=== PATIENT | female | born 1935 | race Caucasian/White ===

== ENCOUNTER 2016-11-29 07:57 | Emergency (ER) | payer MEDICARE, OTHER ==
[~2016-11-29] VITALS: Ht 172.7 cm; Wt 82.0 kg
[~2016-11-29 07:57] MED LIST: ASPI325T PO; ATOR40TA29 PO; DABI75CA3 PO; DOCU-175 PO; GABA-336 PO; SOTA80TA20 PO; [UNRECOGNIZED DRUG - CODE] BOTH EYES
[2016-11-29 07:59] VITALS: Ht 172.7 cm; Wt 82.0 kg
--- OUTSIDE RECORDS SUMMARY | 2016-11-29 08:02 | XMS REPORT | Continuity of Care Document ---
Author Author [facility] Organization [facility] Address Unknown Phone Unavailable Support Name Relationship Address Phone LOKESH ZHANG MD Caregiver [facility] [address] [place] [address] TETE KING [address] [place] [address] [phone] SYLVIA MARTIN DO Caregiver [facility] [address] [place] [address] [facility] [address] [place] [phone] MAC ARVIZU Next Of Kin [address] [place], [place] [id number] Insurance Providers Payer Name Policy Number Subscriber Name Relationship Medicare [id number] Raquel Maguire 18 Self [place] [id number] Raquel Maguire 18 Self Advance Directives Directive Response Recorded Date/Time Advanced Directives Type None 01/22/14 11:13pm Ordered Resuscitation Status Full Code 01/22/14 10:02pm Resuscitation Documents on File No 01/22/14 11:13pm Chief Complaint and Reason for Visit Chief Complaint NEW ONSET OF AFIB Reason for Visit Paroxysmal atrial fibrillation Problems Medical Problems Problem Onset Date Status Urinary tract infection Unknown Active Atrial fibrillation with rapid ventricular response Unknown Active Volume depletion Unknown Active Bradycardia 09/23/2014 Active Paroxysmal atrial fibrillation 09/23/2014 Active Medications Medication Dose Route Sig Days/Qty Instructions Order Date Discontinued Date Status Ibuprofen 200 Mg PO NEEDED 10/26/09 05/06/12 Discontinued Calcium 1,000 Mg PO DAILY 07/18/08 10/25/09 Discontinued Multivitamins 1 Tab PO DAILY 10/26/09 05/06/12 Discontinued Risedronate 35 Mg PO WEEKLY 10/26/09 05/06/12 Discontinued Atorvastatin Calcium 10 Mg PO DAILY 07/18/08 10/25/09 Discontinued Simvastatin 40 Mg PO DAILY 10/26/09 09/20/13 Discontinued [Amiodarone] 05/29/10 05/06/12 Discontinued Acetaminophen 2 Tab PO NEEDED 05/06/12 09/20/13 Discontinued Flecainide Acetate 150 Mg PO TWICE A DAY 09/20/13 09/23/14 Discontinued Atorvastatin Calcium 40 Mg PO BEDTIME 09/20/13 Active Gabapentin 100 Mg PO TWICE A DAY 100 Qty 05/10/14 Active Acetaminophen 1-2 Tab PO NEEDED 05/10/14 Active Aspirin 325 Mg PO DAILY 05/10/14 09/23/14 Discontinued Docusate Sodium 1 Cap PO NEEDED 09/15/14 Active Dabigatran Etexilate Mesylate 1 Cap PO TWICE A DAY TAKE WITH FULL GLASS OF WATER. 09/22/14 Active Amiodarone HCl 200 Mg PO DAILY 30 Qty 10/07/14 Active Social History Social History Problem Response Recorded Date/Time Hx Substance Use No 09/22/2014 1:13pm Hx Alcohol Use Y RARELY 09/22/2014 1:13pm Has the pt used tobacco in the last 12 months No 10/06/2014 2:24pm Query Response Start Date Stop Date Smoking Status Never smoker Hospital Discharge Instructions Instructions: Care Instructions: Reason for Hospitalization: Afib I was in the hospital because (patient own words): STATES,"I HAVE ATRIAL FIB." Discharge Diet: Heart Healthy Discharge Activity: No restrictions. Follow Up Appointments: Keep scheduled appointments for Echo and OV next week. Condition at time of discharge: Good n/a Durable Medical Equipment: n/a Notify Physician If: fever > 101, worsening pain General Information: n/a Condition at time of discharge: Good Plan of Care Discharge Date 10/07/14 3:45pm Disposition 01 DISCHARGED HOME, SELF-CARE Instructions/Education Provided Atrial Fibrillation Prescriptions See Medications Section Functional Status Query Response Date Recorded Physical Hygiene Self October 07, 2014 2:56pm Disabilities None October 07, 2014 2:56pm Devices Used None October 07, 2014 2:56pm Dressing Self October 07, 2014 2:56pm Ambulation Self October 07, 2014 2:56pm Diet Self October 07, 2014 2:56pm Mental Status Alert Oriented October 07, 2014 2:56pm Disabilities None October 07, 2014 2:56pm Devices Used None October 07, 2014 2:56pm Physical Hygiene Self October 07, 2014 2:56pm Dressing Self October 07, 2014 2:56pm Ambulation Self October 07, 2014 2:56pm Diet Self October 07, 2014 2:56pm Allergies, Adverse Reactions, Alerts Allergen Type Severity Reaction Status Last Updated No Known Drug Allergies Allergy Unknown Active 10/06/14 Immunizations Name Given Type Hx Influenza Vaccination Y FALL 2013 Historical Hx Pneumococcal Vaccination Y FALL 2012 Historical Hx Influenza Vaccination Y FALL 2013 Historical Vital Signs Acute Vital Signs Vital Response Date/Time Temperature (Fahrenheit) 96.1 deg F (96.8 - 99.1) Temperature (Calculated Celsius) 35.94534 degrees C (36.0 - 37.3) Pulse Rate (adult) 50 bpm (60 - 100) Respiratory Rate 24 breaths/min (10 - 20) O2 Sat by Pulse Oximetry 98 % (90 - 100) Oxygen Delivery Method Room Air Blood Pressure 113/67 mm Hg Blood Pressure Source Automatic Cuff Height 5 ft 9 in Weight 174 lb Body Mass Index 25.0 kg/m^2 Results Test Source Date Result Interp. Ref. Range Comments Activated Partial Thromboplast Time May 06, 2012 1:53am 46.1 SEC H 24-36 Alanine Aminotransferase (ALT/SGPT) October 06, 2014 4:20pm 30 U/L N 9-52 Albumin October 06, 2014 4:20pm 3.5 G/DL N 3.5-5.0 Albumin/Globulin Ratio October 06, 2014 4:20pm 1.2 RATIO N 1.1-2.2 Alkaline Phosphatase October 06, 2014 4:20pm 81 U/L N 38-126 Anion Gap October 07, 2014 5:19am 10 MEQ/L N 5-15 Aspartate Amino Transf (AST/SGOT) October 06, 2014 4:20pm 22 U/L N 14-36 BUN/Creatinine Ratio October 07, 2014 5:19am 18 RATIO N 6-26 Basophils # (Auto) October 06, 2014 4:20pm 0.0 T/MM3 N 0-0.2 Basophils (%) (Auto) October 06, 2014 4:20pm 0.7 % N 0-2 Blood Urea Nitrogen October 07, 2014 5:19am 14.0 MG/DL N 7-17 C-Reactive Protein December 16, 2012 4:30pm < 5.0 MG/L 0-9 Calcium Level October 07, 2014 5:19am 9.4 MG/DL N 8.4-10.2 Calculated Osmolality October 07, 2014 5:19am 278 MOSM/KG N 261-280 Carbon Dioxide Level October 07, 2014 5:19am 26 MEQ/L N 22-30 Chemistry Specimen Hemolysis October 07, 2014 5:19am < 15 0-25 0-25: No Hemolysis.26-70: Slight Hemolysis - can falsely elevate K and Urine Protein. 71-285: Moderate Hemolysis - can falsely elevate K, Troponin I, CA 19-9, PTH, CSF GLucose, and Urine Protein, and can falsely decrease Phenytoin. 286-999: Gross Hemolysis - can falsely elevate K, Troponin I, CA 19-9, PTH, CSF Glucose, and Urine Protine, and can falsely decrease Phenytoin. Recommend specimen recollection. Chloride Level October 07, 2014 5:19am 108 MEQ/L H 98-107 Cholesterol Level June 21, 2014 7:43am 175 MG/DL N 132-199 Cholesterol/HDL Ratio June 21, 2014 7:43am 2.9 RATIO N 0-4.0 Conjugated Bilirubin August 17, 2013 7:18am 0.00 MG/DL N 0.00-0.30 Creatine Kinase MB May 06, 2012 8:40pm 0.7 NG/ML N 0-3.4 Creatinine October 07, 2014 5:19am 0.8 MG/DL N 0.7-1.2 D-Dimer May 06, 2012 1:53am 166 NG/ML N 0-400 --- 05/06/12 0254 -- -DD previously reported as: < 150 NG/ML <400 NG/ML=PRESUMPTIVE NEGATIVE FOR PE OR DVT >400 NG/ML=ADDITIONAL EVALUATION FOR PE OR DVT RECOMMENDED Eosinophils # (Auto) October 06, 2014 4:20pm 0.1 T/MM3 N 0-0.5 Eosinophils (%) (Auto) October 06, 2014 4:20pm 1.9 % N 0-4 Erythrocyte Sedimentation Rate December 16, 2012 4:30pm 15 MM/HR N 0-20 Free Thyroxine October 06, 2014 4:20pm 1.04 NG/DL N 0.78-2.19 Globulin October 06, 2014 4:20pm 2.9 G/DL N 2.4-3.6 Glomerular Filtration Rate Calc October 07, 2014 5:19am 69 - Glucose Level October 07, 2014 5:19am 101 MG/DL N 65-110 HDL Cholesterol Direct June 21, 2014 7:43am 61 MG/DL H 40-60 Hematocrit October 06, 2014 4:20pm 37.5 % N 36-46 Hemoglobin October 06, 2014 4:20pm 12.4 GM/DL N 12-16 Icterus Index October 07, 2014 5:19am 2 N 0-7 Immature Granulocyte # (Auto) October 06, 2014 4:20pm 0.01 T/MM3 N 0.00- 0.03 Immature Granulocyte % (Auto) October 06, 2014 4:20pm 0.2 % N 0.0-0.5 LDL Cholesterol, Calculated June 21, 2014 7:43am 100.0 N 66-159 Lab Scanned Report June 21, 2014 12:35pm LAB TEST FORM REQUEST [id number] - Lymphocytes # (Auto) October 06, 2014 4:20pm 2.2 T/MM3 N 1-4.8 Lymphocytes (%) (Auto) October 06, 2014 4:20pm 38.2 % N 23-45 Magnesium Level October 07, 2014 5:19am 2.2 MG/DL N 1.6-2.3 Mean Corpuscular Hemoglobin October 06, 2014 4:20pm 29.3 UUG N 26-34 Mean Corpuscular Hemoglobin Concent October 06, 2014 4:20pm 33.1 GM/DL N 31-37 Mean Corpuscular Volume October 06, 2014 4:20pm 88.7 UM3 N 80-100 Mean Platelet Volume October 06, 2014 4:20pm 10.4 UM3 N 9.4-12.4 Monocytes # (Auto) October 06, 2014 4:20pm 0.6 T/MM3 N 0-0.8 Monocytes (%) (Auto) October 06, 2014 4:20pm 11.0 % H 0-9.0 LW-Say-K-Type Natriuretic Peptide May 06, 2012 1:53am 1520 PG/ML H 0 -175 Rule in cut points: <50 years old=450; 50-75 years old=900; >75 years old=1800; When utilizing ProBNP rule-in cut points, adjustment for impaired renal function is typically not required. Neutrophils # (Auto) October 06, 2014 4:20pm 2.8 T/MM3 N 1.8-7.7 Neutrophils (%) (Auto) October 06, 2014 4:20pm 48.0 % N 33-66 Platelet Count October 06, 2014 4:20pm 240 T/MM3 N 130-400 Potassium Level October 07, 2014 5:19am 4.1 MEQ/L N 3.6-5 Prothromb Time International Ratio September 20, 2013 8:55am 1.07 N 0.86- 1.10 THERAPUTIC RANGE=2.00-3.00 FOR ANTI-THROMBOSIS THERAPUTIC RANGE=2.50- 3.50 FOR IMPLANTED VALVE RDW Standard Deviation October 06, 2014 4:20pm 42.8 FL N 36.9-50.2 Red Blood Count October 06, 2014 4:20pm 4.23 M/MM3 N 4.00-5.20 Sodium Level October 07, 2014 5:19am 144 MEQ/L N 134-144 Thyroid Stimulating Hormone (TSH) October 06, 2014 4:20pm 1.97 MIU/L N 0.47-4.68 Total Bilirubin October 06, 2014 4:20pm 0.40 MG/DL N 0.20-1.30 Total Creatine Kinase May 06, 2012 8:40pm 61 U/L N 30-135 Total Protein October 06, 2014 4:20pm 6.4 G/DL N 6.3-8.2 Triglycerides Level June 21, 2014 7:43am 70 MG/DL N 35-135 Troponin I September 14, 2014 11:24pm 0.014 ng/ml N 0-0.12 Turbidity October 07, 2014 5:19am < 20 0-20 Unconjugated Bilirubin August 17, 2013 7:18am 0.40 MG/DL N 0.00-1.10 Urine Bacteria September 14, 2014 11:16pm None seen - Has specimen been collected/obtained? Y Urine Bilirubin September 14, 2014 11:16pm Negative - Has specimen been collected/obtained? Y Urine Blood September 14, 2014 11:16pm Trace-intact H - Has specimen been collected/obtained? Y Urine Collection Type September 14, 2014 11:16pm Cleancatch-midstream - Has specimen been collected/obtained? Y Urine Color September 14, 2014 11:16pm Yellow - Has specimen been collected/obtained? Y Urine Culture Indicated September 14, 2014 11:16pm Cult reflexed &setup - Has specimen been collected/obtained? Y Urine Glucose (UA) September 14, 2014 11:16pm Negative - Has specimen been collected/obtained? Y Urine Ketones September 14, 2014 11:16pm Negative - Has specimen been collected/obtained? Y Urine Leukocyte Esterase September 14, 2014 11:16pm Trace H - Has specimen been collected/obtained? Y Urine Nitrite September 14, 2014 11:16pm Positive H - Has specimen been collected/obtained? Y Urine Protein September 14, 2014 11:16pm Negative - Has specimen been collected/obtained? Y Urine RBC September 14, 2014 11:16pm None seen /HPF - Has specimen been collected/obtained? Y Urine Specific [place] September 14, 2014 11:16pm <=1.005 L - Has specimen been collected/obtained? Y Urine Squamous Epithelial Cells September 14, 2014 11:16pm None seen - Has specimen been collected/obtained? Y Urine Turbidity September 14, 2014 11:16pm Clear - Has specimen been collected/obtained? Y Urine Urobilinogen September 14, 2014 11:16pm 0.2 EU/DL - Has specimen been collected/obtained? Y Urine WBC September 14, 2014 11:16pm 1-3 /HPF - Has specimen been collected/obtained? Y Urine pH September 14, 2014 11:16pm 6.0 - Has specimen been collected/ obtained? Y VLDL Cholesterol June 21, 2014 7:43am 14.0 MG/DL N 0-28 White Blood Count October 06, 2014 4:20pm 5.8 T/MM3 N 4.5-11.0 Urine Culture Urine, Clean Catch-Midstream September 15, 2014 12:27am Pseudomonas Aeruginosa Procedures Procedure Status Date Provider(s) COMPREHEN METABOLIC PANEL completed 09/14/14 URINALYSIS AUTO W/SCOPE completed 09/14/14 ASSAY OF MAGNESIUM completed 09/14/14 ASSAY OF TROPONIN QUANT completed 09/14/14 COMPLETE CBC W/AUTO DIFF WBC completed 09/14/14 URINE CULTURE/COLONY COUNT completed 09/14/14 ELECTROCARDIOGRAM TRACING completed 09/14/14 HYDRATE IV INFUSION ADD-ON completed 09/14/14 THER/PROPH/DIAG IV INF INIT completed 09/14/14 EMERGENCY DEPT VISIT completed 09/14/14 [id number] ITEM OR SERVICE completed 09/14/14 [id number]"INJECTION, CEFTRIAXONE SODIUM, PER 250 MG" completed 09/14/14 [id number]"INFUSION, NORMAL SALINE SOLUTION , 1000 CC" completed 09/14/14 [id number]"INFUSION, NORMAL SALINE SOLUTION , 250 CC" completed 09/14/14 ELECTROCARDIOGRAM TRACING completed 09/23/14 Encounters Encounter Location Date/Time Discharged Inpatient [facility] 10/06/14 1:41pm Departed Clinic [facility] 09/23/14 11:57am Departed Emergency Room [facility] 09/14/14 10:57pm Recent Diagnosis Paroxysmal atrial fibrillation
--- OUTSIDE RECORDS SUMMARY | 2016-11-29 08:03 | XMS REPORT | Continuity of Care Document ---
Author Author [facility] Organization [facility] Address Unknown Phone Unavailable Support Name Relationship Address Phone LOKESH ZHANG MD Caregiver [address] [place] [address] [address] [place] [address] Unavailable LOKESH ZHANG MD Caregiver [address] [place] [address] [address] [place] [address] Unavailable SYLVIA MARTIN DO Caregiver [address] [place] [address] Unavailable GODFREY SUTTON MD Caregiver [address] [place] [address] [place] [address] Unavailable MAC ARVIZU Next Of Kin [address], [place] [id number] Insurance Providers Guarantor Raquel Maguire Address [address] [place] [address] Email [email or web address] Payer Medicare Policy Number [id number] Subscriber's Name Raquel Maguire Key Relationship 18 Self Effective Date 00 Payer [place] Policy Number [id number] Subscriber's Name Raquel Maguire Relationship 18 Self Group Number PLANE Effective Date 00 Advance Directives Directive Response Recorded Date/Time Advanced Directives Type None 01/22/14 11:13pm Dr Ocasio Resuscitation Status Full Code 01/22/14 10:02pm Resuscitation Documents on File No 01/22/14 11:13pm DPOA for Healthcare Only Y TAMARA TING 02/09/16 12:59pm Living Will Yes 02/09/16 12:59pm Problems Active Problems Medical Problem Onset Date Status Atrial fibrillation with rapid ventricular response Unknown Acute Bradycardia 09/23/2014 Acute Low serum thyroid stimulating hormone (TSH) Unknown Acute Metatarsal bone fracture Unknown Acute Paroxysmal atrial fibrillation 09/23/2014 Acute Urinary tract infection Unknown Acute Volume depletion Unknown Acute Medications Current Home Medications Medication Dose Units Route Directions Days Qty Instructions Start Date Amiodarone Hcl (Pacerone) 200 Mg Tablet 200 Mg Oral Daily 30 Days 30 Tablet 02/10/16 Amiodarone Hcl (Pacerone) 200 Mg Tablet 400 Mg Oral Twice A Day 7 Days 28 Tablet 02/10/16 Aspirin 325 Mg Tablet 650 Mg Oral Three Times A Day 02/09/16 Atorvastatin Calcium 40 Mg Tablet 40 Mg Oral Bedtime 09/20/13 Carboxymethylcellulose Sodium (Restore Tears) 30 Ml Drops 1 Drop Both Eyes Daily 02/09/16 Cephalexin 500 Mg Capsule 500 Mg Oral Every 12 Hours 10 Days 20 Capsule 02/10/16 Dabigatran Etexilate Mesylate (Pradaxa) 75 Mg Capsule 150 Mg Oral Twice A Day 30 Days 120 Capsule 02/10/16 Docusate Sodium 100 Mg Capsule 100 Mg Oral Daily 09/15/14 Gabapentin 100 Mg Capsule 100 Mg Oral Three Times A Day 05/10/14 Metoprolol Succinate (Toprol Xl) 50 Mg Tab.er.24h 50 Mg Oral Twice A Day 30 Days 60 Tablet 02/10/16 Past Home Medications Medication Directions Ordered Status Acetaminophen (Tylenol Arthritis) 650 Mg Tablet, 2 Tab Oral As Needed Discontinued Amiodarone , 05/29/10 Discontinued Aspirin 325 Mg Tablet, 325 Mg Oral Daily 05/10/14 Discontinued Atorvastatin Calcium (Lipitor) 10 Mg Tablet, 10 Mg Oral Daily 07/18/08 Discontinued Calcium 500 Mg Tablet, 1000 Mg Oral Daily 07/18/08 Discontinued Dabigatran Etexilate Mesylate (Pradaxa) 75 Mg Capsule, 150 Mg Oral Twice A Day 09/22/14 Discontinued Flecainide Acetate 150 Mg Tablet, 150 Mg Oral Twice A Day 09/20/13 Discontinued Ibuprofen 200 Mg Capsule, 200 Mg Oral As Needed 10/26/09 Discontinued Multivitamins (Multi-Day Vitamin) 1 Tab Tablet, 1 Tab Oral Daily 10/26/09 Discontinued Risedronate (Actonel) 35 Mg Tablet, 35 Mg Oral Weekly 10/26/09 Discontinued Simvastatin 40 Mg Tablet, 40 Mg Oral Daily 10/26/09 Discontinued Social History Social History Problem Response Recorded Date/Time Onset Date Status Hx Substance Use No 02/09/2016 10:52am Not Applicable Not Applicable Hx Alcohol Use Y RARELY 02/09/2016 10:52am Not Applicable Not Applicable Has the pt used tobacco in the last 12 months No 02/09/2016 1:02pm Not Applicable Not Applicable Tobacco Usage none 02/09/2016 5:05pm Not Applicable Not Applicable Query Response Start Date Stop Date Smoking Status Never smoker Hospital Discharge Instructions Instructions: Care Instructions: Reason for Hospitalization: atrial fibrillation with rapid ventricular response I was in the hospital because (patient own words): DIZZY AND MY PULSE WAS A-FIB AND WEAK Discharge Diet: Heart Healthy, Low Na, Low caffeine Discharge Activity: as tolerated Follow Up Appointments: Dr. Guo 1-2 weeks, call to make that appointment Dr. Zhang/Debbie Estrada [employer] 1 week w/an ECG Dr. Martin in one week from discharge regarding UTI and thyroid function. Pending Lab / Results: No Pending Lab Patient Instructions: Amiodarone 400mg by mouth twice daiy for 7 days; then Amiodarone 200mg once daily there after. Metoprolol 50mg twice daily Pradaxa 150mg twice daily Aspirin as prior to admission, at least 81mg daily until one year post coronary stenting Keflex 500mg by mouth every 12 hours for 10 days (UTI) Monitor BP and pulse at home daily, call for sbp <100 or dizziness with position changes. Condition at time of discharge: Good Plan of Care Discharge Date 02/10/16 5:35pm Disposition 01 DISCHARGED HOME, SELF-CARE Prescriptions See Medication Section Additional Instructions/Education Follow up with Dr Martin in one week for (1) Urinary Tract infection (2) Regarding your thyroid activity (low TSH level/overactive thyroid) Care Plan and Goals See Discharge Instructions Section Functional Status Query Response Date Recorded Mobility Status Ambulatory w/assist February 09, 2016 1:18pm Assistive Devices None February 09, 2016 1:18pm Activity Limitations Weakness Dizziness February 09, 2016 1:18pm Feeding Ability Independent February 09, 2016 1:18pm Toileting Ability Independent February 09, 2016 1:18pm Grooming Ability Independent February 09, 2016 1:18pm Dressing Ability Independent February 09, 2016 1:18pm Driving Ability Independent February 09, 2016 1:18pm Housework Ability Independent February 09, 2016 1:18pm Meal Preparation Ability Independent February 09, 2016 1:18pm Stair Climbing Ability Independent February 09, 2016 1:18pm Ability to complete ADL's impeded by No change February 09, 2016 1:18pm Cognitive/Perceptual Impairments Impaired vision February 09, 2016 1:18pm Visual Assistive Devices Glasses February 09, 2016 1:18pm Preferred Method of Learning Reading Listening February 09, 2016 1:18pm Allergies, Adverse Reactions, Alerts Allergen Type Severity Reaction Status Last Updated No Known Drug Allergies Allergy Unknown Active 02/09/16 Immunizations Query Response on File Recorded Date/Time Hx Influenza Vaccination Y fall 201402/09/16 1:02pm Hx Pneumococcal Vaccination Y fall 201202/09/16 1:02pm Hx Influenza Vaccination Y fall 201402/09/16 1:02pm Influenza Vaccine Hx March 2015 02/10/16 1:41pm Vital Signs Acute Vital Signs Vital Response Date/Time Temperature (Fahrenheit) 97.7 deg F (96.8 - 99.1) 02/10/2016 12:07pm Temperature (Calculated Celsius) 36.27531 degrees C (36.0 - 37.3) 02/10/2016 12:07pm Pulse Rate (adult) 62 bpm (60 - 100) 02/10/2016 1:01pm Respiratory Rate 10 breaths/min (10 - 20) 02/10/2016 1:01pm O2 Sat by Pulse Oximetry 100 % (90 - 100) 02/10/2016 1:01pm Oxygen Delivery Method Room Air 02/10/2016 1:01pm Blood Pressure 115/58 mm Hg 02/10/2016 1:01pm Blood Pressure Source Automatic Cuff 02/10/2016 1:01pm Height (Feet) 5 feet 02/09/2016 5:05pm Height (Inches) 8.00 inches 02/09/2016 5:05pm Weight (Kilograms) 87.500 kg 02/10/2016 11:11am Body Mass Index (BMI) 32.7 02/09/2016 12:57pm Results Laboratory Results Test Name Result Units Flags Reference Collection Date/Time Result Date/ Time Comments White Blood Count 6.9 T/MM3 4.5-11.0 02/09/2016 11:02am 02/09/2016 11: 25am Red Blood Count 4.35 M/MM3 4.00-5.20 02/09/2016 11:02am 02/09/2016 11: 25am Hemoglobin 12.4 GM/DL 12-02/09/2016 11:02am 02/09/2016 11:25am Hematocrit 39.0 % 36-46 02/09/2016 11:02am 02/09/2016 11:25am Mean Corpuscular Volume 89.7 UM3 80-100 02/09/2016 11:0202/09/2016 11:25am Mean Corpuscular Hemoglobin 28.5 UUG 26-34 02/09/2016 11:2015 11:25am Mean Corpuscular Hemoglobin Concent 31.8 GM/DL 31-37 02/09/2016 11:02/09/2016 11:25am RDW Standard Deviation 42.9 FL 36.9-50.2 02/09/2016 11:02/09/2016 11:25am Platelet Count 268 T/MM3 130-400 02/09/2016 11:0202/09/2016 11:25am Mean Platelet Volume 10.4 UM3 9.4-12.4 02/09/2016 11:0202/09/2016 11 :25am Neutrophils (%) (Auto) 64.5 % 33-66 02/09/2016 11:02/09/2016 11: 25am Lymphocytes (%) (Auto) 24.8 % 23-45 02/09/2016 11:0202/09/2016 11: 25am Monocytes (%) (Auto) 9.1 % H 0-9.0 02/09/2016 11:02/09/2016 11: 25am Eosinophils (%) (Auto) 1.2 % 0-4 02/09/2016 11:02/09/2016 11:25am Basophils (%) (Auto) 0.4 % 0-2 02/09/2016 11:0202/09/2016 11:25am Immature Granulocyte % (Auto) 0.0 % 0.0-0.5 02/09/2016 11:2015 11:25am Absolute Neutrophils (auto) 4.5 T/MM3 1.8-7.7 02/09/2016 11:2015 11:25am Absolute Lymphocytes (auto) 1.7 T/MM3 1-4.8 02/09/2016 11:2015 11:25am Absolute Monocytes (auto) 0.6 T/MM3 0-0.8 02/09/2016 11:022015 11:25am Absolute Eosinophils (auto) 0.1 T/MM3 0-0.5 02/09/2016 11:022015 11:25am Absolute Basophils (auto) 0.0 T/MM3 0-0.2 02/09/2016 11:022015 11:25am Absolute Immature Granulocyte (auto 0.00 T/MM3 0.00-0.03 02/09/2016 11: 0202/09/2016 11:25am Icterus Index < 2 0-7 02/09/2016 11:0202/09/2016 11:31am Chemistry Specimen Hemolysis < 15 0-25 02/10/2016 6:13am 02/10/2016 7 :21am 0-25: Specimen Exhibited No Hemolysis. Turbidity < 20 0-20 02/09/2016 11:0202/09/2016 11:31am Sodium Level 144 MEQ/L 134-144 02/09/2016 11:02am 02/09/2016 11:31am Potassium Level 4.4 MEQ/L 3.6-5 02/09/2016 11:0202/09/2016 11:31am Chloride Level 105 MEQ/L 98-107 02/09/2016 11:0202/09/2016 11:31am Carbon Dioxide Level 28 MEQ/L 22-30 02/09/2016 11:02am 02/09/2016 11: 31am Anion Gap 11 MEQ/L 5-15 02/09/2016 11:0202/09/2016 11:31am Blood Urea Nitrogen 16.0 MG/DL 7-17 02/09/2016 11:02am 02/09/2016 11: 31am Creatinine 0.6 MG/DL L 0.7-1.2 02/09/2016 11:0202/09/2016 11:31am BUN/Creatinine Ratio 27 RATIO H 6-26 02/09/2016 11:0202/09/2016 11: 31am Glomerular Filtration Rate Calc 96 02/09/2016 11:0202/09/2016 11 :31am Glucose Level 141 MG/DL H 65-110 02/09/2016 11:0202/09/2016 11:31am Calculated Osmolality 280 MOSM/KG 261-280 02/09/2016 11:022015 11:31am Calcium Level 9.6 MG/DL 8.4-10.2 02/09/2016 11:02am 02/09/2016 11:31am Troponin I < 0.012 ng/ml 0-0.12 02/10/2016 6:13am 02/10/2016 7:21am Troponin values with a difference of 55% increase from orginal troponin value represent a true biological DELTA value. (%increase Calc=Orginal Troponin value, divided by subsequent Troponin value, multiplied by 100) AX-Ttr-Y-Type Natriuretic Peptide 1130 PG/ML H 0-175 02/09/2016 11:02am 02/09/2016 11:42am Rule in cut points: <50 years old=450; 50-75 years old=900; >75 years old=1800; When utilizing ProBNP rule-in cut points, adjustment for impaired renal function is typically not required. Magnesium Level 2.3 MG/DL 1.6-2.3 02/09/2016 11:02am 02/09/2016 11: 31am Thyroid Stimulating Hormone (TSH) < 0.02 MIU/L L 0.47-4.68 02/09/2016 12: 00pm 02/09/2016 3:04pm Urine Collection Type VOIDED-NOT CC-MIDSTR 02/09/2016 1:01pm 2015 1:19pm Urine Color YELLOW YELLOW 02/09/2016 1:01pm 02/09/2016 1:19pm Urine Turbidity CLEAR CLEAR 02/09/2016 1:01pm 02/09/2016 1:19pm Urine Specific [place] <=1.005 L 1.015-1.025 02/09/2016 1:01pm 2015 1:19pm Urine pH 6.0 5.0-8.0 02/09/2016 1:01pm 02/09/2016 1:19pm Urine Leukocyte Esterase TRACE A NEGATIVE 02/09/2016 1:01pm 2015 1:19pm Urine Nitrite POSITIVE A NEGATIVE 02/09/2016 1:01pm 02/09/2016 1:19pm Urine Protein NEGATIVE NEGATIVE 02/09/2016 1:01pm 02/09/2016 1:19pm Urine Glucose (UA) NEGATIVE NEGATIVE 02/09/2016 1:01pm 02/09/2016 1: 19pm Urine Ketones NEGATIVE NEGATIVE 02/09/2016 1:01pm 02/09/2016 1:19pm Urine Urobilinogen 0.2 EU/DL NORMAL 02/09/2016 1:01pm 02/09/2016 1: 19pm Urine Bilirubin NEGATIVE NEGATIVE 02/09/2016 1:01pm 02/09/2016 1: 19pm Urine Blood NEGATIVE NEGATIVE 02/09/2016 1:01pm 02/09/2016 1:19pm Urine WBC 5-10 /HPF H 0-5 02/09/2016 1:01pm 02/09/2016 1:40pm Urine RBC NONE SEEN /HPF 0-3 02/09/2016 1:01pm 02/09/2016 1:40pm Urine Squamous Epithelial Cells 0-5 02/09/2016 1:01pm 02/09/2016 1: 40pm Urine Bacteria 1+ H NEGATIVE 02/09/2016 1:01pm 02/09/2016 1:40pm Urine Culture Indicated CULT REFLEXED &SETUP 02/09/2016 1:01pm 1:40pm Microbiology Results Procedure Source Organism/Result Collection Date/Time Result Date/Time Result Status Urine Culture Urine, Voided-Not Cc-Midstream GRAM NEGATIVE FREDDY 02/09/2016 1 :40pm 02/10/2016 12:18pm Preliminary Name: RAQUEL MAGUIRE Unit #: [id number] : 1935 Sex: F Admit Date: Loc / Svc: ED Discharge Date: DIAGNOSTIC IMAGING REPORT Report #: [id number] [place], [place] Indication: ITS.REASON: atrial fibrillation PROCEDURE: CHEST 1 VIEW: Encounter: Initial Comparison: August 24, 2015 Findings: The lungs are stable in appearance without new focal airspace consolidation. There is no pleural effusion or pneumothorax. The heart size, pulmonary vascularity and mediastinal contours are unchanged. Left cardiac pacemaker. Scoliosis IMPRESSION: Stable appearance of the chest without acute cardiopulmonary disease. . Procedures No known history of procedures. Encounters Encounter Location Arrival/Admit Date Discharge/Depart Date Attending Provider Discharged Inpatient (obs) [facility] 02/09/16 11:57am 02/10/16 5 :35pm LOKESH ZHANG MD
--- OUTSIDE RECORDS SUMMARY | 2016-11-29 08:03 | XMS REPORT ---
Author Author Antonio Guo [facility] eClinicalWorks Address Unknown Phone Unavailable Care Team Providers Care Law Reporter Name Role Phone Antonio Guo CP Unavailable Allergies, Adverse Reactions, Alerts Substance Reaction Event Type N.K.D.A. Info Not Available Non Drug Allergy Problems Problem Type Condition ICD-9 Code Onset Dates Condition Status Problem Sinus Bradycardia 427.89 Active Problem High Risk Med V58.69 Active Problem Atrial fibrillation 427.31 Active Assessment S/P Pacemaker Placement - Dual V45.01 Active Assessment Chronic Anticoagulation V58.61 Active Assessment Atrial fibrillation 427.31 Active Assessment Bradycardia 427.89 Active Medications Medication Code System Code Instructions Start Date End Date Status Dosage Tylenol Arthritis Pain [facility] [address]-27 650 MG Orally every 8 hrs 1 tablet as needed Pradaxa [facility] [address]-14 150 MG Orally Twice a day 1 capsule Gabapentin [facility] [address]-27 100 MG Orally BID 1 tablet Restore NDC 0 not defined Serenity Allergy [facility] [address] 180 MG Orally prn 1 tablet Atorvastatin Calcium [facility] [address]-23 40 MG Orally Once a day 1 tablet Stool Softener [facility] [address]-17 100 MG Orally Once a day 1 capsule as needed Procedures Procedure Coding System Code Date Office Visit, Est Pt., Level 4 CPT-4 26478 Feb 23, 2015 Ofc Program PM Dual, Staff CPT-4 42080 Feb 23, 2015 ELECTROCARDIOGRAM, COMPLETE CPT-4 13111 Feb 23, 2015 Vital Signs Date/Time: Feb 23, 2015 BMI 26.14 Index Weight 177. lbs Height 5 ft 9 in in Cardiac Monitoring Heart Rate 64 /min Oximetry 98% % Blood Pressure Diastolic 70 mm Hg Blood Pressure Systolic 122 mm Hg Results No Known Results Summary Purpose eClinicalWorks Submission
--- OUTSIDE RECORDS SUMMARY | 2016-11-29 08:03 | XMS REPORT ---
Author Author Antonio Guo Organization [facility] Address [address] [place] [address] Care Team Providers Care Women'S Studies Professor Name Role Phone Antonio Guo Unavailable [phone] PROBLEMS Type Condition ICD9-CM Code IUZ56-FX Code Onset Dates Condition Status SNOMED Code Assessment Chronic Anticoagulation V58.61 Jun, Active 213459344 Assessment High risk medication use Z79.899 Jun, Active 517921080 Problem Atrial fibrillation 427.31 Active 16240260 Problem Sinus Bradycardia 427.89 Active 84856921 Assessment Bradycardia 427.89 Jun, Active 05350081 Assessment S/P Pacemaker Placement - Dual V45.01 Jun, Active 083097456 Problem High Risk Med V58.69 Active 704633220 Assessment Atrial fibrillation 427.31 Jun, Active 06728529 ALLERGIES Substance Reaction Event Type Date Status N.K.D.A. Unknown Non Drug Allergy Jun, Unknown SOCIAL HISTORY No smoking Hx information available PLAN OF CARE Activity Details Pending Test AtriaECW 1 Year,Reason: VITAL SIGNS Height 5 ft 9 in in 2016-07-11 Weight 184 lbs 2016-07-11 BMI 27.17 kg/m2 2016-07-11 Oximetry 98& % 2016-07-11 Heart Rate 63 /min 2016-07-11 Blood pressure systolic 126 mm Hg 2016-07-11 Blood pressure diastolic 70 mm Hg 2016-07-11 MEDICATIONS Medication Instructions Dosage Frequency Start Date End Date Duration Status Restore 1 tablet 24h Active Calcium 600 + D 600-200 MG-UNIT Orally bid 1 tablet 12h Active Aspirin 325 MG Orally TID 2 tablets 8h Active Gabapentin 100 MG Orally Three times a day 1 tablet 8h Active Stool Softener 100 MG Orally Once a day 1 capsule as needed 24h Active Pradaxa 150 MG Orally Twice a day 1 capsule 12h Active Atorvastatin Calcium 40 MG Orally Once a day 1 tablet 24h Active Sotalol HCl 80 MG Orally every 12 hrs 1/2 tablet 12h Active RESULTS No Results PROCEDURES Procedure Date Ordered Related Diagnosis Body Site ELECTROCARDIOGRAM, COMPLETE Jul 11, 2016 Office Visit, Est Pt., Level 4 Jul 11, 2016 Ofc Program PM Dual, Staff Jul 11, 2016 IMMUNIZATIONS No Known Immunizations
--- OUTSIDE RECORDS SUMMARY | 2016-11-29 08:03 | XMS REPORT | Continuity of Care Document ---
Author Author [facility] Organization [facility] Address Unknown Phone Unavailable Support Name Relationship Address Phone SYLVIA MARTIN DO Caregiver [facility] [address] [place] [phone] MAC ARVIZU Next Of Kin [address] [place], [place] [id number] Insurance Providers Payer Name Policy Number Subscriber Name Relationship Medicare [id number] Malinda Maguire 18 Self [place] [id number] Malinda Maguire 18 Self Advance Directives Directive Response Recorded Date/Time Advanced Directives Type None 01/22/14 11:13pm Ordered Resuscitation Status Full Code 01/22/14 10:02pm Resuscitation Documents on File No 01/22/14 11:13pm Problems No known problems or medical conditions. Medications Medication Dose Route Sig Days/Qty Instructions Order Date Discontinued Date Status Ibuprofen 200 Mg PO NEEDED 10/26/09 05/06/12 Discontinued Calcium Carbonate 2 Tab PO TWICE A DAY 10/26/09 Active Calcium 1,000 Mg PO DAILY 07/18/08 10/25/09 Discontinued Multivitamins 1 Tab PO DAILY 10/26/09 05/06/12 Discontinued Risedronate 35 Mg PO WEEKLY 10/26/09 05/06/12 Discontinued Atorvastatin Calcium 10 Mg PO DAILY 07/18/08 10/25/09 Discontinued Simvastatin 40 Mg PO DAILY 10/26/09 09/20/13 Discontinued [Amiodarone] 05/29/10 05/06/12 Discontinued Acetaminophen 2 Tab PO NEEDED 05/06/12 09/20/13 Discontinued Flecainide Acetate 150 Mg PO TWICE A DAY 09/20/13 Active Atorvastatin Calcium 40 Mg PO BEDTIME 09/20/13 Active Clopidogrel Bisulfate 75 Mg PO DAILY 30 Qty 05/10/14 Active Gabapentin 100 Mg PO TWICE A DAY 100 Qty 05/10/14 Active Acetaminophen 1-2 Tab PO NEEDED 05/10/14 Active Aspirin 325 Mg PO DAILY 05/10/14 Active Social History Social History Problem Response Recorded Date/Time Smoking Status Never smoker 01/23/2014 12:48am Chewing Tobacco Status No 05/10/2014 1:42pm Hx Substance Use No 05/10/2014 1:42pm Hx Alcohol Use Y RARELY 05/10/2014 1:42pm Has the pt used tobacco in the last 12 months No 05/10/2014 1:42pm Query Response Start Date Stop Date Smoking Status Never smoker Hospital Discharge Instructions No hospital discharge instructions. Plan of Care No plan of care. Functional Status No functional status results. Allergies, Adverse Reactions, Alerts Allergen Type Severity Reaction Status Last Updated No Known Drug Allergies Allergy Unknown Active 05/06/12 Immunizations Name Given Type Hx Influenza Vaccination Y FALL 2013 Historical Hx Pneumococcal Vaccination Y FALL 2012 Historical Hx Influenza Vaccination Y FALL 2013 Historical Vital Signs Acute Vital Signs Vital Response Date/Time Temperature (Fahrenheit) 97.1 deg F (96.8 - 99.1) Temperature (Calculated Celsius) 36.00165 degrees C (36.0 - 37.3) Temperature Source Temporal Pulse Rate (adult) 52 bpm (60 - 100) Respiratory Rate 16 breaths/min (10 - 20) O2 Sat by Pulse Oximetry 97 % (90 - 100) Oxygen Delivery Method Room Air Blood Pressure 137/73 mm Hg Blood Pressure Source Automatic Cuff Height 5 ft 9 in Weight 166 lb Body Mass Index 24.0 kg/m^2 Results Test Source Date Result Interp. Ref. Range Comments Activated Partial Thromboplast Time May 06, 2012 1:53am 46.1 SEC H 24-36 Alanine Aminotransferase (ALT/SGPT) August 17, 2013 7:18am 30 U/L N 9- 52 Albumin August 17, 2013 7:18am 3.9 G/DL N 3.5-5.0 Albumin/Globulin Ratio August 17, 2013 7:18am 1.4 RATIO N 1.1-2.2 Alkaline Phosphatase August 17, 2013 7:18am 77 U/L N 38-126 Anion Gap January 23, 2014 5:34am 8 MEQ/L N 5-15 Aspartate Amino Transf (AST/SGOT) August 17, 2013 7:18am 22 U/L N 14- 36 BUN/Creatinine Ratio January 23, 2014 5:34am 24 RATIO N 6-26 Basophils # (Auto) January 23, 2014 5:34am 0.0 T/MM3 N 0-0.2 Basophils (%) (Auto) January 23, 2014 5:34am 0.5 % N 0-2 Blood Urea Nitrogen January 23, 2014 5:34am 17.0 MG/DL N 7-17 C-Reactive Protein December 16, 2012 4:30pm < 5.0 MG/L 0-9 Calcium Level January 23, 2014 5:34am 8.9 MG/DL N 8.4-10.2 Calculated Osmolality January 23, 2014 5:34am 266 MOSM/KG N 261-280 Carbon Dioxide Level January 23, 2014 5:34am 30 MEQ/L N 22-30 Chloride Level January 23, 2014 5:34am 99 MEQ/L N 98-107 Cholesterol Level September 21, 2013 4:30am 124 MG/DL L 132-199 Cholesterol/HDL Ratio September 21, 2013 4:30am 2.9 RATIO N 0-4.0 Conjugated Bilirubin August 17, 2013 7:18am 0.00 MG/DL N 0.00-0.30 Creatine Kinase MB May 06, 2012 8:40pm 0.7 NG/ML N 0-3.4 Creatinine January 23, 2014 5:34am 0.7 MG/DL N 0.7-1.2 D-Dimer May 06, 2012 1:53am 166 NG/ML N 0-400 --- 05/06/12 0254 -- -DD previously reported as: < 150 NG/ML <400 NG/ML=PRESUMPTIVE NEGATIVE FOR PE OR DVT >400 NG/ML=ADDITIONAL EVALUATION FOR PE OR DVT RECOMMENDED Eosinophils # (Auto) January 23, 2014 5:34am 0.1 T/MM3 N 0-0.5 Eosinophils (%) (Auto) January 23, 2014 5:34am 1.6 % N 0-4 Erythrocyte Sedimentation Rate December 16, 2012 4:30pm 15 MM/HR N 0-20 Free Thyroxine May 06, 2012 1:53am 2.12 NG/DL N 0.78-2.19 COMMENT ON BLOOD IN LAB Globulin August 17, 2013 7:18am 2.8 G/DL N 2.4-3.6 Glucose Level January 23, 2014 5:34am 98 MG/DL N 65-110 Hematocrit January 23, 2014 5:34am 35.1 % L 36-46 Hemoglobin January 23, 2014 5:34am 11.4 GM/DL L 12-16 LDL Cholesterol, Calculated September 21, 2013 4:30am 63.2 L 66-159 Lymphocytes # (Auto) January 23, 2014 5:34am 1.8 T/MM3 N 1-4.8 Lymphocytes (%) (Auto) January 23, 2014 5:34am 24.3 % N 23-45 Magnesium Level May 07, 2012 4:25am 2.2 MG/DL N 1.6-2.3 Mean Corpuscular Hemoglobin January 23, 2014 5:34am 29.4 UUG N 26-34 Mean Corpuscular Hemoglobin Concent January 23, 2014 5:34am 32.5 GM/DL N 31 -37 Mean Corpuscular Volume January 23, 2014 5:34am 90.5 UM3 N 80-100 Mean Platelet Volume January 23, 2014 5:34am 10.1 UM3 N 9.4-12.4 Monocytes # (Auto) January 23, 2014 5:34am 1.2 T/MM3 H 0-0.8 Monocytes (%) (Auto) January 23, 2014 5:34am 16.1 % H 0-9.0 Neutrophils # (Auto) January 23, 2014 5:34am 4.2 T/MM3 N 1.8-7.7 Neutrophils (%) (Auto) January 23, 2014 5:34am 57.4 % N 33-66 Platelet Count January 23, 2014 5:34am 233 T/MM3 N 130-400 Potassium Level January 23, 2014 5:34am 3.8 MEQ/L N 3.6-5 Prothromb Time International Ratio September 20, 2013 8:55am 1.07 N 0.86- 1.10 THERAPUTIC RANGE=2.00-3.00 FOR ANTI-THROMBOSIS THERAPUTIC RANGE=2.50- 3.50 FOR IMPLANTED VALVE RDW Standard Deviation January 23, 2014 5:34am 42.5 FL N 36.9-50.2 Red Blood Count January 23, 2014 5:34am 3.88 M/MM3 L 4.00-5.20 Sodium Level January 23, 2014 5:34am 137 MEQ/L N 134-144 Thyroid Stimulating Hormone (TSH) May 06, 2012 1:53am 0.03 MIU/L L 0.47-4.68 COMMENT ON BLOOD IN LAB Total Bilirubin August 17, 2013 7:18am 0.50 MG/DL N 0.20-1.30 Total Creatine Kinase May 06, 2012 8:40pm 61 U/L N 30-135 Total Protein August 17, 2013 7:18am 6.7 G/DL N 6.3-8.2 Triglycerides Level September 21, 2013 4:30am 89 MG/DL N 35-135 Troponin I May 06, 2012 8:40pm < 0.012 ng/ml 0-0.12 Unconjugated Bilirubin August 17, 2013 7:18am 0.40 MG/DL N 0.00-1.10 VLDL Cholesterol September 21, 2013 4:30am 17.8 MG/DL N 0-28 White Blood Count January 23, 2014 5:34am 7.4 T/MM3 N 4.5-11.0 Chemistry Specimen Hemolysis January 23, 2014 5:34am < 15 0-25 0-25: No Hemolysis.26-70: Slight [...] can falsely decrease Phenytoin. Recommend specimen recollection. Lab Scanned Report August 17, 2013 10:21am LAB TEST FORM REQUEST [id number] - HDL Cholesterol Direct September 21, 2013 4:30am 43 MG/DL N 40-60 Turbidity January 23, 2014 5:34am < 20 0-20 Glomerular Filtration Rate Calc January 23, 2014 5:34am 81 - Immature Granulocyte # (Auto) January 23, 2014 5:34am 0.01 T/MM3 N 0.00- 0.03 Immature Granulocyte % (Auto) January 23, 2014 5:34am 0.1 % N 0.0-0.5 Icterus Index January 23, 2014 5:34am < 2 0-7 VQ-Rox-O-Type Natriuretic Peptide May 06, 2012 1:53am 1520 PG/ML H 0 -175 Rule in cut points: <50 years old=450; 50-75 years old=900; >75 years old=1800; When utilizing ProBNP rule-in cut points, adjustment for impaired renal function is typically not required. Procedures Procedure Status Date Provider(s) Colonoscopy completed 05/11/14 SYLVIA MARTIN DO Encounters Encounter Location Date/Time Registered Clinic [facility] 04/19/14 10:47am
--- OUTSIDE RECORDS SUMMARY | 2016-11-29 08:03 | XMS REPORT | Continuity of Care Document ---
Author Author [facility] Organization [facility] Address Unknown Phone Unavailable Allergies Active Description Code Type Severity Reaction Onset Reported/Identified Relationship to Patient Clinical Status Yes No Known Allergies No Known Allergies Drug Allergy Unknown N/A 10/20/2014 Yes No Known Drug Allergies No Known Drug Allergies Drug Allergy Unknown . 11/09/2014 Medications Problems Date Dx Coded Attending Type Code Diagnosis Diagnosed By 11/09/2014 Antonio Vasquez MD V72.81 Procedures Code Description Performed By Performed On 37.72 INITIAL INSERT TRANS LEADS INTO ATRIUM VENTRICLE Antonio Vasquez MD 10/20/2014 37.83 INITIAL INSERTION OF DUAL-CHAMBER DEVICE Antonio Vasquez MD 10/20/2014 Results Test Result Range B-TYPE NATRIURETIC PEPTIDE - 10/20/14 11:15 B-TYPE NATRIURETIC PEPTIDE 255 pg/mL < 100 CBC - 10/20/14 11:15 MEAN CELL HGB 29.1 pg 27.0-33.0 MEAN CELL HGB CONCENTRATION 32.4 g/dL 32.0-37.0 MEAN CELL VOLUME 89.8 fl 80.0-100.0 RED BLOOD CELL 4.53 m/cumm 4.00-6.00 RED CELL DISTRIBUTION WIDTH 13.9 % 11.0- 15.6 WHITE BLOOD CELL 5.9 k/cumm 5.0-10.0 HEMOGLOBIN 13.2 gm/dL 12.0-16.0 HEMATOCRIT 40.7 % 37.0-47.0 PLATELET COUNT 289 k/cumm 150-400 PROTHROMBIN TIME WITH INR - 10/20/14 11:15 INTERNATIONAL NORMAL RATIO 1.0 0.9-1.1 PROTHROMBIN TIME 11.3 sec 9.3-12.2 PARTIAL THROMBOPLASTIN TIME - 10/20/14 11:15 PARTIAL THROMBOPLASTIN TIME 41 sec 24-36 METABOLIC PANEL, COMPREHN - 10/20/14 11:15 POTASSIUM 4.2 mmol/L 3.5-5.3 EST GFR (MDRD) 51 mL/min > 59 ANION GAP 7 mmol/L 5-15 EST CrCl (CG) 46 mL/min > 59 GLUCOSE 95 mg/dL 70-99 CALCIUM 9.4 mg/dL 8.5-10.1 BLOOD UREA NITROGEN 16 mg/dL 7-20 CREATININE 1.1 mg/dL 0.6-1.0 SODIUM 141 mmol/L 135-148 CHLORIDE 107 mmol/L 98-110 AST/SGOT 17 Units/L 10-37 ALT/SGPT 22 Units/L < 66 CARBON DIOXIDE 27 mmol/L 21-32 TOTAL PROTEIN 7.0 gm/dL 6.4-8.2 ALBUMIN 3.7 gm/dL 3.4-5.0 BILI TOTAL 0.6 mg/dL 0.0-1.0 ALKALINE PHOSPHATASE TOTAL 95 IU/L 45- 117 MAGNESIUM - 10/20/14 11:15 MAGNESIUM 2.3 mg/dL 1.8-2.4 THYROID STIM HORMONE (TSH) - 10/20/14 11:15 THYROID STIM HORMONE (TSH) 3.65 uIU/mL 0.34-4.82 B-TYPE NATRIURETIC PEPTIDE - 11/09/14 10:00 B-TYPE NATRIURETIC PEPTIDE 51 pg/mL < 100 CBC - 11/09/14 10:00 MEAN CELL HGB 29.2 pg 27.0-33.0 MEAN CELL HGB CONCENTRATION 32.6 g/dL 32.0-37.0 MEAN CELL VOLUME 89.7 fl 80.0-100.0 RED BLOOD CELL 4.35 m/cumm 4.00-6.00 RED CELL DISTRIBUTION WIDTH 13.8 % 11.0- 15.6 WHITE BLOOD CELL 6.2 k/cumm 5.0-10.0 HEMOGLOBIN 12.7 gm/dL 12.0-16.0 HEMATOCRIT 39.0 % 37.0-47.0 PLATELET COUNT 244 k/cumm 150-400 PROTHROMBIN TIME WITH INR - 11/09/14 10:00 INTERNATIONAL NORMAL RATIO 1.2 0.9-1.1 PROTHROMBIN TIME 13.8 sec 9.3-12.2 PARTIAL THROMBOPLASTIN TIME - 11/09/14 10:00 PARTIAL THROMBOPLASTIN TIME 64 sec 24-36 METABOLIC PANEL, COMPREHN - 11/09/14 10:00 POTASSIUM 4.2 mmol/L 3.5-5.3 EST GFR (MDRD) > 60 mL/min > 59 ANION GAP 6 mmol/L 5-15 EST CrCl (CG) 57 mL/min > 59 GLUCOSE 96 mg/dL 70-99 CALCIUM 9.0 mg/dL 8.5-10.1 BLOOD UREA NITROGEN 19 mg/dL 7-20 CREATININE 0.9 mg/dL 0.6-1.0 SODIUM 140 mmol/L 135-148 CHLORIDE 105 mmol/L 98-110 AST/SGOT 16 Units/L 10-37 ALT/SGPT 20 Units/L < 66 CARBON DIOXIDE 29 mmol/L 21-32 TOTAL PROTEIN 7.1 gm/dL 6.4-8.2 ALBUMIN 3.7 gm/dL 3.4-5.0 BILI TOTAL 0.4 mg/dL 0.0-1.0 ALKALINE PHOSPHATASE TOTAL 98 IU/L 45- 117 MAGNESIUM - 11/09/14 10:00 MAGNESIUM 2.3 mg/dL 1.8-2.4 THYROID STIM HORMONE (TSH) - 11/09/14 10:00 THYROID STIM HORMONE (TSH) 3.04 uIU/mL 0.34-4.82 Encounters ACCT No. Visit Date/Time Discharge Status Pt. Type Provider Facility Loc./Unit Complaint [id number] 11/09/2014 08:55:00 2014 08:55:00 DIS Outpatient Juan Antonio Guo MD, [facility] [id number] 11/09/2014 08:55:00 2014 08:55:00 DIS Outpatient Juan Antonio Guo MD, [facility] [id number] 10/20/2014 10:22:00 2014 12:01:00 DIS Outpatient Juan Antonio Guo MD, [facility]
--- OUTSIDE RECORDS SUMMARY | 2016-11-29 08:03 | XMS REPORT ---
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 Info Not Available Non Drug Allergy Problems Problem Type Condition Code Onset Dates Condition Status Problem Sinus Bradycardia 427.89 Active Problem High Risk Med V58.69 Active Problem Atrial fibrillation 427.31 Active Assessment S/P Pacemaker Placement - Dual V45.01 Active Assessment Chronic Anticoagulation V58.61 Active Assessment Atrial fibrillation 427.31 Active Assessment Bradycardia 427.89 Active Medications Medication Code System Code Instructions Start Date End Date Status Dosage Atorvastatin Calcium [facility] [address]-22 40 MG Orally Once a day 1 tablet Gabapentin [facility] [address]-41 100 MG Orally Three times a day 1 tablet Stool Softener [facility] [address]-47 100 MG Orally Once a day 1 capsule as needed Pradaxa [facility] [address]-40 150 MG Orally Twice a day 1 capsule Celecoxib [facility] [address]-00 200 MG Orally Once a day 1 capsule Restore ND 0 not defined Procedures Procedure Coding System Code Date Office Visit, Est Pt., Level 4 CPT-4 19529 January 23, 2016 Ofc Program PM Dual, Staff CPT-4 15766 January 23, 2016 ELECTROCARDIOGRAM, COMPLETE CPT-4 75197 January 23, 2016 Vital Signs Date/Time: January 23, 2016 BMI 26.49 Index Weight 179.4 lbs Height 5 ft 9 in in Cardiac Monitoring Heart Rate 72 /min Oximetry 96% % Blood Pressure Diastolic 72 mm Hg Blood Pressure Systolic 138 mm Hg Results Name Result Date Reference Range Unit Abnormality Flag AtriaECW Summary Purpose [employer] Submission
--- OUTSIDE RECORDS SUMMARY | 2016-11-29 08:03 | XMS REPORT | Continuity of Care Document ---
Author Author [facility] Organization [facility] Address Unknown Phone Unavailable Support Name Relationship Address Phone CATRACHITO DOSHI MD Caregiver [address] [place] [address] SYLVIA MARTIN DO Caregiver [facility] [address] [place] [phone] MAC ARVIZU Next Of Kin [address] [place] [address] Insurance Providers Payer Name Policy Number Subscriber Name Relationship Medicare [id number] Raquel Maguire 18 Self [employer] [id number] Raquel Maguire 18 Self Advance Directives Directive [...] 40 Mg PO DAILY 10/26/09 09/20/13 Discontinued [Coumadin] 7.5 DAILY 10/26/09 Active [Amiodarone] 05/29/10 05/06/12 Discontinued Acetaminophen 2 Tab PO NEEDED 05/06/12 09/20/13 Discontinued Flecainide Acetate 150 Mg PO TWICE A DAY 09/20/13 Active Atorvastatin Calcium 40 Mg PO BEDTIME 09/20/13 Active Social History Social History Problem Response Recorded Date/Time Smoking Status Never smoker 01/23/2014 12:48am Hx Alcohol Use Y RARELY 09/20/2013 8:48am Has the pt used tobacco in the last 12 months No 09/20/2013 8:48am Query Response Start Date Stop Date Smoking Status Never smoker Hospital Discharge Instructions Instructions: Care Instructions: Reason for Hospitalization: contractions I was in the hospital because (patient own words): I was having contractions Discharge Diet: regular Discharge Activity: activity as tolerated Follow Up Appointments: Next scheduled appointment Patient Instructions: See Maternal Child dismissal instructions Wound/Incision Care: n/a Durable Medical Equipment: n/a Notify Physician If: See Maternal Child dismissal instructions General Information: n/a New Scripts Called to Pharmacy: n/a Condition at time of discharge: Good Care Plan Discharge Patient: Goal: Understand discharge plan Patient Instructions: see patient instructions Condition at time of discharge: Good Care Plan Discharge Patient: Goal: Maximum functional status Patient Instructions: see patient instructions Good Care Plan Discharge Patient: Goal: Maximum functional status Patient Instructions: see patient instructions see patient instructions Discharge Patient: Goal: Maximum functional status Patient Instructions: see patient instructions Plan of Care Discharge Date 01/29/14 4:03pm Disposition 01 DISCHARGED HOME, SELF-CARE Prescriptions See Medications Section Functional Status No functional status results. Allergies, Adverse Reactions, Alerts Allergen Type Severity Reaction Status Last Updated No Known Drug Allergies Allergy Unknown Active 05/06/12 Immunizations Name Given Type Hx Influenza Vaccination Y FALL 2012 Historical Hx Pneumococcal Vaccination Y FALL 2012 Historical Hx Influenza Vaccination Y FALL 2012 Historical Vital Signs Acute Vital Signs Vital Response Date/Time Temperature (Fahrenheit) 96.6 deg F (96.8 - 99.1) Temperature (Calculated Celsius) 35.93013 degrees C (36.0 - 37.3) Temperature Source Temporal Pulse Rate (adult) 57 bpm (60 - 100) Respiratory Rate 16 breaths/min (10 - 20) Height 5 ft 9 in Weight 171 lb Body Mass Index 25.0 kg/m^2 Results [...] 17, 2013 10:21am LAB TEST FORM REQUEST [id number] - HDL Cholesterol Direct September 21, 2013 [...] January 23, 2014 5:34am < 2 0-7 [id number]-Nxa-W-Type Natriuretic Peptide May 06, 2012 1:53am 1520 PG/ML H 0 -175 Rule in cut points: <50 years old=450; 50-75 years old=900; >75 years old=1800; When utilizing ProBNP rule-in cut points, adjustment for impaired renal function is typically not required. Procedures No known history of procedures. Encounters Encounter Location Date/Time Discharged Inpatient [facility] 01/22/14 9:00pm Registered Recurring [facility] 01/10/14 3:27pm
--- OUTSIDE RECORDS SUMMARY | 2016-11-29 08:03 | XMS REPORT ---
Author Author Antonio Guo Organization [employer] Address Unknown Phone Unavailable Care Team Providers Care Exhibit Specialist Name Role Phone Antonio Guo CP Unavailable Allergies, Adverse Reactions, Alerts Substance Reaction Event Type N.K.D.A. Info Not Available Non Drug Allergy Problems Problem Type Condition Code Onset Dates Condition Status Assessment High risk medication use Z79.899 Active Problem Sinus Bradycardia 427.89 Active Problem High Risk Med V58.69 Active Problem Atrial fibrillation 427.31 Active Assessment S/P Pacemaker Placement - Dual V45.01 Active Assessment Chronic Anticoagulation V58.61 Active Assessment Atrial fibrillation 427.31 Active Assessment Bradycardia 427.89 Active Medications Medication Code System Code Instructions Start Date End Date Status Dosage Pradaxa [facility] [address]-43 150 MG Orally Twice a day 1 capsule Gabapentin [facility] [address]-85 100 MG Orally Three times a day 1 tablet Atorvastatin Calcium [facility] [address]-02 40 MG Orally Once a day 1 tablet Aspirin [facility] [address]-06 325 MG Orally TID 1 tablet Stool Softener [facility] [address]-62 100 MG Orally Once a day 1 capsule as needed Sotalol HCl [facility] [address]-46 80 MG Orally every 12 hrs 1/2 tablet Procedures Procedure Coding System Code Date Office Visit, Est Pt., Level 4 CPT-4 22307 Mar 12, 2016 Ofc Program PM Dual, Staff CPT-4 35024 Mar 12, 2016 ELECTROCARDIOGRAM, COMPLETE CPT-4 70145 Mar 12, 2016 Vital Signs Date/Time: Mar 12, 2016 BMI 26.52 Index Weight 179.6 lbs Height 5 ft 9 in in Cardiac Monitoring Heart Rate 62 /min Oximetry 98%RA % Blood Pressure Diastolic 80 mm Hg Blood Pressure Systolic 142 mm Hg Results Name Result Date Reference Range Unit Abnormality Flag AtriaECW Summary Purpose [employer] Submission
--- OUTSIDE RECORDS SUMMARY | 2016-11-29 08:03 | XMS REPORT | Continuity of Care Document ---
Author Author [facility] Organization [facility] Address Unknown Phone Unavailable Support Name Relationship Address Phone SYLVIA REGALADO MD Caregiver [facility] [address] [place] [address] Unavailable SYLVIA MARTIN DO Caregiver [facility] [address] [place] [phone] MAC ARVIZU Next Of Kin [address] [place], [place] [id number] Insurance Providers Payer Name Policy Number Subscriber Name Relationship Medicare [id number] Malinda Maguire 18 Self [place] [id number] Malinda Maguire 18 Self Advance Directives Directive Response Recorded Date/Time Advanced Directives Type None 01/22/14 11:13pm Ordered Resuscitation Status Full Code 01/22/14 10:02pm Resuscitation Documents on File No 01/22/14 11:13pm Problems Medical Problems Problem Onset Date Status Urinary tract infection Unknown Active Atrial fibrillation with rapid ventricular response Unknown Active Volume depletion Unknown Active Medications Medication Dose Route Sig Days/Qty [...] Aspirin 325 Mg PO DAILY 05/10/14 Active Docusate Sodium 1 Cap PO NEEDED 09/15/14 Active Cephalexin 500 Mg PO THREE TIMES A DAY 21 Qty 09/15/14 Active Social History Social History Problem Response Recorded Date/Time Hx Substance Use No 09/14/2014 11:00pm Hx Alcohol Use Y RARELY 09/14/2014 11:00pm Has the pt used tobacco in the last 12 months No 05/10/2014 1:42pm Query Response Start Date Stop Date Smoking Status Never smoker Hospital Discharge Instructions No hospital discharge instructions. Plan of Care No plan of care. Functional Status Query Response Date Recorded Physical Hygiene Self September 14, 2014 11:00pm Disabilities None September 14, 2014 11:00pm Devices Used Glasses September 14, 2014 11:00pm Dressing Self September 14, 2014 11:00pm Ambulation Self September 14, 2014 11:00pm Diet Self September 14, 2014 11:00pm Mental Status Alert September 15, 2014 2:47am Disabilities None September 14, 2014 11:00pm Devices Used Glasses September 14, 2014 11:00pm Physical Hygiene Self September 14, 2014 11:00pm Dressing Self September 14, 2014 11:00pm Ambulation Self September 14, 2014 11:00pm Diet Self September 14, 2014 11:00pm Allergies, Adverse Reactions, Alerts Allergen Type Severity Reaction Status Last Updated No Known Drug Allergies Allergy Unknown Active 05/06/12 Immunizations Name Given Type Hx Influenza Vaccination Y FALL 2013 Historical Hx Pneumococcal Vaccination Y FALL 2012 Historical Hx Influenza Vaccination Y FALL 2013 Historical Vital Signs Acute Vital Signs Vital Response Date/Time Temperature (Fahrenheit) 98.7 deg F (96.8 - 99.1) Temperature (Calculated Celsius) 37.49768 degrees C (36.0 - 37.3) Pulse Rate (adult) 71 bpm (60 - 100) Respiratory Rate 20 breaths/min (10 - 20) O2 Sat by Pulse Oximetry 96 % (90 - 100) Blood Pressure 133/81 mm Hg Height 5 ft 9 in Weight 180 lb Body Mass Index 26.0 kg/m^2 Results Test Source Date Result Interp. Ref. Range Comments Urine Culture Indicated September 14, 2014 11:16pm Cult reflexed &setup - Has specimen been collected/obtained? Y Urine Bacteria September 14, 2014 11:16pm None seen - Has specimen been collected/obtained? Y Urine Squamous Epithelial Cells September 14, 2014 11:16pm None seen - Has specimen been collected/obtained? Y Urine RBC September 14, 2014 11:16pm None seen /HPF - Has specimen been collected/obtained? Y Urine WBC September 14, 2014 11:16pm 1-3 /HPF - Has specimen been collected/obtained? Y Activated Partial Thromboplast Time May 06, 2012 1:53am 46.1 SEC H 24-36 Alanine Aminotransferase (ALT/SGPT) September 14, 2014 11:24pm 25 U/L N 9- 52 Albumin September 14, 2014 11:24pm 3.8 G/DL N 3.5-5.0 Albumin/Globulin Ratio September 14, 2014 11:24pm 1.2 RATIO N 1.1-2.2 Alkaline Phosphatase September 14, 2014 11:24pm 97 U/L N 38-126 Anion Gap September 14, 2014 11:24pm 10 MEQ/L N 5-15 Aspartate Amino Transf (AST/SGOT) September 14, 2014 11:24pm 23 U/L N 14-36 BUN/Creatinine Ratio September 14, 2014 11:24pm 23 RATIO N 6-26 Basophils # (Auto) September 14, 2014 11:24pm 0.1 T/MM3 N 0-0.2 Basophils (%) (Auto) September 14, 2014 11:24pm 0.6 % N 0-2 Blood Urea Nitrogen September 14, 2014 11:24pm 23.0 MG/DL H 7-17 C-Reactive Protein December 16, 2012 4:30pm < 5.0 MG/L 0-9 Calcium Level September 14, 2014 11:24pm 9.3 MG/DL N 8.4-10.2 Calculated Osmolality September 14, 2014 11:24pm 280 MOSM/KG N 261-280 Carbon Dioxide Level September 14, 2014 11:24pm 28 MEQ/L N 22-30 Chemistry Specimen Hemolysis September 14, 2014 11:24pm < 15 0-25 0-25: No Hemolysis.26-70: Slight [...] decrease Phenytoin. Recommend specimen recollection. Chloride Level September 14, 2014 11:24pm 106 MEQ/L N 98-107 Cholesterol Level June 21, 2014 7:43am 175 MG/DL N 132-199 Cholesterol/HDL Ratio June 21, 2014 7:43am 2.9 RATIO N 0-4.0 Conjugated Bilirubin August 17, 2013 7:18am 0.00 MG/DL N 0.00-0.30 Creatine Kinase MB May 06, 2012 8:40pm 0.7 NG/ML N 0-3.4 Creatinine September 14, 2014 11:24pm 1.0 MG/DL N 0.7-1.2 D-Dimer May 06, 2012 1:53am 166 NG/ML N 0-400 --- 05/06/12 0254 -- -DD previously reported as: < 150 NG/ML <400 NG/ML=PRESUMPTIVE NEGATIVE FOR PE OR DVT >400 NG/ML=ADDITIONAL EVALUATION FOR PE OR DVT RECOMMENDED Eosinophils # (Auto) September 14, 2014 11:24pm 0.2 T/MM3 N 0-0.5 Eosinophils (%) (Auto) September 14, 2014 11:24pm 2.4 % N 0-4 Erythrocyte Sedimentation Rate December 16, 2012 4:30pm 15 MM/HR N 0-20 Free Thyroxine May 06, 2012 1:53am 2.12 NG/DL N 0.78-2.19 COMMENT ON BLOOD IN LAB Globulin September 14, 2014 11:24pm 3.1 G/DL N 2.4-3.6 Glomerular Filtration Rate Calc September 14, 2014 11:24pm 53 - Glucose Level September 14, 2014 11:24pm 80 MG/DL N 65-110 HDL Cholesterol Direct June 21, 2014 7:43am 61 MG/DL H 40-60 Hematocrit September 14, 2014 11:24pm 39.4 % N 36-46 Hemoglobin September 14, 2014 11:24pm 13.1 GM/DL N 12-16 Icterus Index September 14, 2014 11:24pm < 2 0-7 Immature Granulocyte # (Auto) September 14, 2014 11:24pm 0.02 T/MM3 N 0.00- 0.03 Immature Granulocyte % (Auto) September 14, 2014 11:24pm 0.2 % N 0.0-0.5 LDL Cholesterol, Calculated June 21, 2014 7:43am 100.0 N 66-159 Lab Scanned Report June 21, 2014 12:35pm LAB TEST FORM REQUEST [id number] - Lymphocytes # (Auto) September 14, 2014 11:24pm 3.0 T/MM3 N 1-4.8 Lymphocytes (%) (Auto) September 14, 2014 11:24pm 37.2 % N 23-45 Magnesium Level September 14, 2014 11:24pm 2.3 MG/DL N 1.6-2.3 Mean Corpuscular Hemoglobin September 14, 2014 11:24pm 29.5 UUG N 26-34 Mean Corpuscular Hemoglobin Concent September 14, 2014 11:24pm 33.2 GM/DL N 31-37 Mean Corpuscular Volume September 14, 2014 11:24pm 88.7 UM3 N 80-100 Mean Platelet Volume September 14, 2014 11:24pm 10.2 UM3 N 9.4-12.4 Monocytes # (Auto) September 14, 2014 11:24pm 1.0 T/MM3 H 0-0.8 Monocytes (%) (Auto) September 14, 2014 11:24pm 12.2 % H 0-9.0 IB-Xcw-F-Type Natriuretic Peptide May 06, 2012 1:53am 1520 PG/ML H 0 -175 Rule in cut points: <50 years old=450; 50-75 years old=900; >75 years old=1800; When utilizing ProBNP rule-in cut points, adjustment for impaired renal function is typically not required. Neutrophils # (Auto) September 14, 2014 11:24pm 3.8 T/MM3 N 1.8-7.7 Neutrophils (%) (Auto) September 14, 2014 11:24pm 47.4 % N 33-66 Platelet Count September 14, 2014 11:24pm 276 T/MM3 N 130-400 Potassium Level September 14, 2014 11:24pm 4.1 MEQ/L N 3.6-5 Prothromb Time International Ratio September 20, 2013 8:55am 1.07 N 0.86- 1.10 THERAPUTIC RANGE=2.00-3.00 FOR ANTI-THROMBOSIS THERAPUTIC RANGE=2.50- 3.50 FOR IMPLANTED VALVE RDW Standard Deviation September 14, 2014 11:24pm 44.0 FL N 36.9-50.2 Red Blood Count September 14, 2014 11:24pm 4.44 M/MM3 N 4.00-5.20 Sodium Level September 14, 2014 11:24pm 144 MEQ/L N 134-144 Thyroid Stimulating Hormone (TSH) June 21, 2014 7:43am 3.06 MIU/L N 0.47-4.68 Total Bilirubin September 14, 2014 11:24pm 0.30 MG/DL N 0.20-1.30 Total Creatine Kinase May 06, 2012 8:40pm 61 U/L N 30-135 Total Protein September 14, 2014 11:24pm 6.9 G/DL N 6.3-8.2 Triglycerides Level June 21, 2014 7:43am 70 MG/DL N 35-135 Troponin I September 14, 2014 11:24pm 0.014 ng/ml N 0-0.12 Turbidity September 14, 2014 11:24pm < 20 0-20 Unconjugated Bilirubin August 17, 2013 7:18am 0.40 MG/DL N 0.00-1.10 Urine Bilirubin September 14, 2014 11:16pm Negative [...] Has specimen been collected/obtained? Y Urine Specific [place] September 14, 2014 11:16pm <=1.005 L - [...] 14.0 MG/DL N 0-28 White Blood Count September 14, 2014 11:24pm 8.0 T/MM3 N 4.5-11.0 Procedures Procedure Status Date Provider(s) ROUTINE VENIPUNCTURE completed 06/21/14 COMPREHEN METABOLIC PANEL completed 06/21/14 LIPID PANEL completed 06/21/14 ASSAY THYROID STIM HORMONE completed 06/21/14 COMPLETE CBC W/AUTO DIFF WBC completed 06/21/14 Encounters Encounter Location Date/Time Departed Emergency Room [facility] 09/14/14 10:57pm Registered Clinic [facility] 06/21/14 7:28am Recent Diagnosis
--- OUTSIDE RECORDS SUMMARY | 2016-11-29 08:03 | XMS REPORT | Continuity of Care Document ---
Author Author [facility] Organization [facility] Address Unknown Phone Unavailable Support Name Relationship Address Phone LOKESH ZHANG MD Caregiver [facility] [address] [place] [address] [address] [place] [phone] SYLVIA MARTIN DO Caregiver [facility] [address] [place] [address] [facility] [address] [place] [phone] MAC ARVIZU Next Of Kin [address] [place], [place] [id number] Insurance Providers Payer Name Policy Number Subscriber Name Relationship Medicare [id number] Raquel Maguire 18 Self [place] [id number] Raquel Maguire 18 Self Advance Directives Directive [...] WITH FULL GLASS OF WATER. 09/22/14 Active Social History Social History Problem Response Recorded Date/Time Chewing Tobacco Status No 09/22/2014 1:13pm Hx Substance Use No 09/22/2014 1:13pm Hx Alcohol Use Y RARELY 09/22/2014 1:13pm Has the pt used tobacco in the last 12 months No 09/22/2014 1:13pm Query Response Start Date Stop Date Smoking Status Never smoker Hospital Discharge Instructions No hospital discharge instructions. Plan of Care No plan of care. Functional Status Query Response Date Recorded Physical Hygiene Self September 23, 2014 2:36pm Disabilities None September 23, 2014 2:36pm Devices Used None September 23, 2014 2:36pm Dressing Self September 23, 2014 2:36pm Ambulation Self September 23, 2014 2:36pm Diet Self September 23, 2014 2:36pm Mental Status Alert Oriented September 23, 2014 2:36pm Disabilities None September 23, 2014 2:36pm Devices Used None September 23, 2014 2:36pm Physical Hygiene Self September 23, 2014 2:36pm Dressing Self September 23, 2014 2:36pm Ambulation Self September 23, 2014 2:36pm Diet Self September 23, 2014 2:36pm Allergies, Adverse Reactions, Alerts Allergen Type Severity Reaction Status Last Updated No Known Drug Allergies Allergy Unknown Active 05/06/12 Immunizations Name Given Type Hx Influenza Vaccination Y FALL 2013 Historical Hx Pneumococcal Vaccination Y FALL 2012 Historical Hx Influenza Vaccination Y FALL 2013 Historical Vital Signs Acute Vital Signs Vital Response Date/Time Temperature (Fahrenheit) 97.0 deg F (96.8 - 99.1) Temperature (Calculated Celsius) 36.35562 degrees C (36.0 - 37.3) Pulse Rate (adult) 47 bpm (60 - 100) Respiratory Rate 14 breaths/min (10 - 20) O2 Sat by Pulse Oximetry 95 % (90 - 100) Oxygen Delivery Method Room Air Blood Pressure 113/65 mm Hg Blood Pressure Source Automatic Cuff Height 5 ft 9 in Weight 176 lb Body Mass Index 26.0 kg/m^2 Results [...] 21, 2014 12:35pm LAB TEST FORM REQUEST [id number] - Lymphocytes # (Auto) September 14, 2014 [...] 14, 2014 11:24pm 12.2 % H 0-9.0 ZD-Gsz-A-Type Natriuretic Peptide May 06, 2012 1:53am 1520 [...] Has specimen been collected/obtained? Y Urine Specific [place] September 14, 2014 11:16pm <=1.005 L - [...] 14, 2014 11:24pm 8.0 T/MM3 N 4.5-11.0 Urine Culture Urine, Clean [...] completed 09/14/14 EMERGENCY DEPT VISIT completed 09/14/14 [id number] ITEM OR SERVICE completed 09/14/14 [id number]"INJECTION, CEFTRIAXONE SODIUM, PER 250 MG" completed 09/14/14 [id number]"INFUSION, NORMAL SALINE SOLUTION , 1000 CC" completed 09/14/14 [id number]"INFUSION, NORMAL SALINE SOLUTION , 250 CC" completed 09/14/14 Encounters Encounter Location Date/Time Departed Clinic [facility] 09/23/14 11:57am Departed Emergency Room [facility] 09/14/14 10:57pm Recent Diagnosis Atrial fibrillation with rapid ventricular response Bradycardia Paroxysmal atrial fibrillation
--- OUTSIDE RECORDS SUMMARY | 2016-11-29 08:03 | XMS REPORT | Continuity of Care Document ---
Author Author [facility] Organization [facility] Address Unknown Phone Unavailable Support Name Relationship Address Phone CATRACHITO DOSHI MD Caregiver [address] [place] [address] SYLVIA MARTIN DO Caregiver [facility] [address] [place] [phone] MAC ARVIZU Next Of Kin [address] [place] [address] Insurance Providers Payer Name Policy Number Subscriber Name Relationship Medicare [id number] Raquel Maguire 18 Self [place] [id number] Raquel Maguire 18 Self Advance Directives Directive [...] Instructions Instructions: Care Instructions: Reason for Hospitalization: Acute Kidney Injury Follow Up Appointments: 1 week. Condition at time of discharge: Fair Care Plan Discharge Patient: Goal: Understand discharge plan Patient Instructions: see patient instructions Wound/Incision Care: Keep incision dry. Change dressing only prn. Condition at time of discharge: Good Care Plan Discharge Patient: Patient Instructions: see patient instructions 1.May drive in 4 weeks if you had your LEFT extremity operated on. 2.May drive in 6 weeks if you had your RIGHT extremity operated on. Wound/Incision Care: Mepilex 1. Mepilex dressing is to remain in place for 3 weeks. 2.Do not pick at it or scrub it while showering. If water gets under the dressing, notify Dr Fatima. 3.If the dressing begins to pull up, secure it with 4x4 gauze pad and tape. 4.You may shower; however, do not submerge yourself in water until the incision is completely healed. Mepilex 1.Dressing to remain in place until your follow up appointment. 2.If this dressing starts peeling up slightly, it may be reinforced, if it peels excessively, notify your surgeon's office. 3.You may shower with the dressing in place, but do not submerge in water 4.Do not allow water to seep under the dressing, if it should seep under, remove the dressing and notify your surgeon. Notify Physician If: Call your Surgeon if you have: 1.Chest pain, difficulty breathing, fever>100.5 degrees, chills, heart rate >100, confusion, or persistent nausea/vomitting. 2.Severe pain, swelling, redness, or warmth in either of your legs. 3.During office hours, call [phone] 4. After hours, please call [facility] at [phone], and have the stabilizer operator page your Surgeon IN THE EVENT OF AN EMERGENCY, seek medical care at the nearest Emergency Room Condition at time of discharge: Good Care [...] Y FALL 2012 Historical Hx Influenza Vaccination fall Historical Vital Signs Acute Vital Signs Vital Response Date/Time Temperature (Fahrenheit) 96.6 deg F (96.8 - 99.1) Temperature (Calculated Celsius) 35.22889 degrees C (36.0 - 37.3) Temperature Source [...] 17, 2013 10:21am LAB TEST FORM REQUEST [id number] - HDL Cholesterol Direct September 21, 2013 [...] January 23, 2014 5:34am < 2 0-7 HY-Tlm-J-Type Natriuretic Peptide May 06, 2012 1:53am 1520 PG/ML H 0 -175 Rule in cut points: <50 years old=450; 50-75 years old=900; >75 years old=1800; When utilizing ProBNP rule-in cut points, adjustment for impaired renal function is typically not required. Name: RAQUEL MAGUIRE Unit #: [id number] : 1935 Sex: F [facility] [place] [facility] DOS: Signed Report #: [id number] DIAGNOSTIC IMAGING REPORT TYPE OF EXAM: HIP RIGHT 2 VIEW Dictated By: KENY CIFUENTES MD INDICATION: ITS.REASON: hip pinning on 01/20 HIP RIGHT 2 VIEW: Comparison: None Findings: Three partially threaded cannulated screws are seen across the right femoral head and neck. There is slight offset between the head and neck, preoperative alignment is unable to be assessed without comparison. No additional acute fracture or dislocation is seen. Surgical dgao present. Impression: Right femoral neck fixation as above. . Procedures Procedure Status Date Provider(s) PHYSICAL MEDICINE PROCEDURE completed 01/22/14 CATRACHITO DOSHI MD GAIT TRAINING THERAPY completed 01/22/14 CATRACHITO DOSHI MD OT EVALUATION completed 01/22/14 CATRACHITO DOSHI MD Encounters Encounter Location Date/Time Discharged Inpatient [facility] 01/22/14 9:00pm Discharged Recurring [facility] 01/10/14 3:27pm
--- NOTE | 2016-11-29 08:10 | NUR ---
PROVIDER DR. MANUEL IN ROOM WITH PT.
--- OUTSIDE RECORDS SUMMARY | 2016-11-29 08:26 | XMS REPORT | Continuity of Care Document ---
Author Author [facility] Organization [facility] Address Unknown Phone Unavailable Support Name Relationship Address Phone CATRACHITO DOSHI MD Caregiver [address] [place] [address] SYLVIA MARTIN DO Caregiver [facility] [address] [place] [phone] MAC ARVIZU Next Of Kin [address] [place] [address] Insurance Providers Payer Name Policy Number Subscriber Name Relationship Medicare [id number] Raquel Maguire 18 Self [place] [id number] Raquel Maguire 18 Self Advance Directives Directive [...] of your legs. 3.During office hours, call [phone] 4. After hours, please call [facility] at [phone], and have the gaming table operator page your Surgeon IN THE EVENT [...] F (96.8 - 99.1) Temperature (Calculated Celsius) 35.22514 degrees C (36.0 - 37.3) Temperature Source [...] 17, 2013 10:21am LAB TEST FORM REQUEST [id number] - HDL Cholesterol Direct September 21, 2013 [...] January 23, 2014 5:34am < 2 0-7 JL-Skj-Y-Type Natriuretic Peptide May 06, 2012 1:53am 1520 PG/ML H 0 -175 Rule in cut points: <50 years old=450; 50-75 years old=900; >75 years old=1800; When utilizing ProBNP rule-in cut points, adjustment for impaired renal function is typically not required. Name: RAQUEL MAGUIRE Unit #: [id number] : 1935 Sex: F [facility] [place] [facility] DOS: Signed Report #: [id number] DIAGNOSTIC IMAGING REPORT TYPE OF EXAM: HIP [...] acute fracture or dislocation is seen. Surgical dago present. Impression: Right femoral neck fixation as above. . Procedures Procedure Status Date Provider(s) PHYSICAL MEDICINE PROCEDURE completed 01/22/14 CATRACHITO DOSHI MD GAIT TRAINING THERAPY completed 01/22/14 CATRACHITO DOSHI MD OT EVALUATION completed 01/22/14 CATRACHITO DOSHI MD Encounters Encounter Location Date/Time Discharged Inpatient [facility] 01/22/14 9:00pm Discharged Recurring [facility] 01/10/14 3:27pm
--- OUTSIDE RECORDS SUMMARY | 2016-11-29 08:26 | XMS REPORT | Continuity of Care Document ---
Author Author [facility] Organization [facility] Address Unknown Phone Unavailable Allergies Active Description [...] Status Pt. Type Provider Facility Loc./Unit Complaint [id number] 11/09/2014 08:55:00 2014 08:55:00 DIS Outpatient Juan Antonio Guo MD, [facility] [id number] 11/09/2014 08:55:00 2014 08:55:00 DIS Outpatient Juan Antonio Guo MD, [facility] [id number] 10/20/2014 10:22:00 2014 12:01:00 DIS Outpatient Juan Antonio Guo MD, [facility]
--- OUTSIDE RECORDS SUMMARY | 2016-11-29 08:26 | XMS REPORT | Continuity of Care Document ---
Author Author [facility] Organization [facility] Address Unknown Phone Unavailable Support Name Relationship Address Phone SYLVIA MARTIN DO Caregiver [facility] [address] [place] [phone] MAC ARVIZU Next Of Kin [address] [place], [place] [id number] Insurance Providers Payer Name Policy Number Subscriber Name Relationship Medicare [id number] Malinda Maguire 18 Self [place] [id number] Malinda Maguire 18 Self Advance Directives Directive [...] F (96.8 - 99.1) Temperature (Calculated Celsius) 36.18250 degrees C (36.0 - 37.3) Temperature Source [...] 17, 2013 10:21am LAB TEST FORM REQUEST [id number] - HDL Cholesterol Direct September 21, 2013 [...] January 23, 2014 5:34am < 2 0-7 TF-Elf-J-Type Natriuretic Peptide May 06, 2012 1:53am 1520 PG/ML H 0 -175 Rule in cut points: <50 years old=450; 50-75 years old=900; >75 years old=1800; When utilizing ProBNP rule-in cut points, adjustment for impaired renal function is typically not required. Procedures Procedure Status Date Provider(s) Colonoscopy completed 05/11/14 SYLVIA MARTIN DO Encounters Encounter Location Date/Time Registered Clinic [facility] 04/19/14 10:47am
--- OUTSIDE RECORDS SUMMARY | 2016-11-29 08:26 | XMS REPORT | Continuity of Care Document ---
Author Author [facility] Organization [facility] Address Unknown Phone Unavailable Support Name Relationship Address Phone LOKESH ZHANG MD Caregiver [facility] [address] [place] [address] [address] [place] [address] [phone] SYLVIA MARTIN DO Caregiver [facility] [address] [place] [address] [facility] [address] [place] [phone] MAC ARVIZU Next Of Kin [address] [place], [place] [id number] Insurance Providers Payer Name Policy Number Subscriber Name Relationship Medicare [id number] Raquel Maguire 18 Self [place] [id number] Raquel Maguire 18 Self Advance Directives Directive [...] F (96.8 - 99.1) Temperature (Calculated Celsius) 35.58983 degrees C (36.0 - 37.3) Pulse Rate [...] 21, 2014 12:35pm LAB TEST FORM REQUEST [id number] - Lymphocytes # (Auto) October 06, 2014 [...] 06, 2014 4:20pm 11.0 % H 0-9.0 CW-Xdi-W-Type Natriuretic Peptide May 06, 2012 1:53am 1520 [...] Has specimen been collected/obtained? Y Urine Specific [place] September 14, 2014 11:16pm <=1.005 L - [...] completed 09/14/14 EMERGENCY DEPT VISIT completed 09/14/14 [id number] ITEM OR SERVICE completed 09/14/14 [id number]"INJECTION, CEFTRIAXONE SODIUM, PER 250 MG" completed 09/14/14 [id number]"INFUSION, NORMAL SALINE SOLUTION , 1000 CC" completed 09/14/14 [id number]"INFUSION, NORMAL SALINE SOLUTION , 250 CC" completed 09/14/14 ELECTROCARDIOGRAM TRACING completed 09/23/14 Encounters Encounter Location Date/Time Discharged Inpatient [facility] 10/06/14 1:41pm Departed Clinic [facility] 09/23/14 11:57am Departed Emergency Room [facility] 09/14/14 10:57pm Recent Diagnosis Paroxysmal atrial fibrillation
--- OUTSIDE RECORDS SUMMARY | 2016-11-29 08:26 | XMS REPORT | Continuity of Care Document ---
Author Author [facility] Organization [facility] Address Unknown Phone Unavailable Support Name Relationship Address Phone CATRACHITO DOSHI MD Caregiver [address] [place] [address] SYLVIA MARTIN DO Caregiver [facility] [address] [place] [phone] MAC ARVIZU Next Of Kin [address] [place] [address] Insurance Providers Payer Name Policy Number Subscriber Name Relationship Medicare [id number] Raquel Maguire 18 Self [place] [id number] Raquel Maguire 18 Self Advance Directives Directive [...] F (96.8 - 99.1) Temperature (Calculated Celsius) 35.37878 degrees C (36.0 - 37.3) Temperature Source [...] 17, 2013 10:21am LAB TEST FORM REQUEST [id number] - HDL Cholesterol Direct September 21, 2013 [...] January 23, 2014 5:34am < 2 0-7 VB-Lii-V-Type Natriuretic Peptide May 06, 2012 1:53am 1520 PG/ML H 0 -175 Rule in cut points: <50 years old=450; 50-75 years old=900; >75 years old=1800; When utilizing ProBNP rule-in cut points, adjustment for impaired renal function is typically not required. Procedures No known history of procedures. Encounters Encounter Location Date/Time Discharged Inpatient [facility] 01/22/14 9:00pm Registered Recurring [facility] 01/10/14 3:27pm
--- OUTSIDE RECORDS SUMMARY | 2016-11-29 08:26 | XMS REPORT | Continuity of Care Document ---
Author Author [facility] Organization [facility] Address Unknown Phone Unavailable Support Name Relationship Address Phone SYLVIA REGALADO MD Caregiver [facility] [address] [place] [address] Unavailable SYLVIA MARTIN DO Caregiver [facility] [address] [place] [phone] MAC ARVIZU Next Of Kin [address] [place], [place] [id number] Insurance Providers Payer Name Policy Number Subscriber Name Relationship Medicare [id number] Malinda Maguire 18 Self [place] [id number] Malinda Maguire 18 Self Advance Directives Directive [...] F (96.8 - 99.1) Temperature (Calculated Celsius) 37.91238 degrees C (36.0 - 37.3) Pulse Rate [...] 21, 2014 12:35pm LAB TEST FORM REQUEST [id number] - Lymphocytes # (Auto) September 14, 2014 [...] 14, 2014 11:24pm 12.2 % H 0-9.0 RD-Rpw-Z-Type Natriuretic Peptide May 06, 2012 1:53am 1520 [...] Has specimen been collected/obtained? Y Urine Specific [place] September 14, 2014 11:16pm <=1.005 L - [...] Encounters Encounter Location Date/Time Departed Emergency Room [facility] 09/14/14 10:57pm Registered Clinic [facility] 06/21/14 7:28am Recent Diagnosis
--- OUTSIDE RECORDS SUMMARY | 2016-11-29 08:27 | XMS REPORT | Continuity of Care Document ---
Author Author [facility] Organization [facility] Address Unknown Phone Unavailable Support Name Relationship Address Phone LOKESH ZHANG MD Caregiver [facility] [address] [place] [address] [address] [place] [phone] SYLVIA MARTIN DO Caregiver [facility] [address] [place] [address] [facility] [address] [place] [phone] MAC ARVIZU Next Of Kin [address] [place], [place] [id number] Insurance Providers Payer Name Policy Number Subscriber Name Relationship Medicare [id number] Raquel Maguire 18 Self [place] [id number] Raquel Maguire 18 Self Advance Directives Directive [...] F (96.8 - 99.1) Temperature (Calculated Celsius) 36.82563 degrees C (36.0 - 37.3) Pulse Rate [...] 21, 2014 12:35pm LAB TEST FORM REQUEST [id number] - Lymphocytes # (Auto) September 14, 2014 [...] 14, 2014 11:24pm 12.2 % H 0-9.0 ZK-Xll-Y-Type Natriuretic Peptide May 06, 2012 1:53am 1520 [...] Has specimen been collected/obtained? Y Urine Specific [place] September 14, 2014 11:16pm <=1.005 L - [...] completed 09/14/14 EMERGENCY DEPT VISIT completed 09/14/14 [id number] ITEM OR SERVICE completed 09/14/14 [id number]"INJECTION, CEFTRIAXONE SODIUM, PER 250 MG" completed 09/14/14 [id number]"INFUSION, NORMAL SALINE SOLUTION , 1000 CC" completed 09/14/14 [id number]"INFUSION, NORMAL SALINE SOLUTION , 250 CC" completed 09/14/14 Encounters Encounter Location Date/Time Departed Clinic [facility] 09/23/14 11:57am Departed Emergency Room [facility] 09/14/14 10:57pm Recent Diagnosis Atrial fibrillation with rapid ventricular response Bradycardia Paroxysmal atrial fibrillation
[2016-11-29 08:28] LABS: BASOPHILS % (AUTO) 0.6 % (0-2); EOSINOPHILS # (AUTO) 0.2 T/MM3 (0-0.5); EOSINOPHILS % (AUTO) 2.7 % (0-4); HCT - HEMATOCRIT 38.5 % (36-46); HGB - HEMOGLOBIN 12.4 GM/DL (12-16); LYMPHOCYTES # (AUTO) 1.9 T/MM3 (1-4.8); LYMPHOCYTES % (AUTO) 29.1 % (23-45); MEAN CORPUSCULAR HGB 28.6 UUG (26-34); MEAN CORPUSCULAR HGB CONC(MCHC 32.2 GM/DL (31-37); MEAN CORPUSCULAR VOLUME 88.9 UM3 (80-100); MEAN PLATELET VOLUME 10.3 UM3 (9.4-12.4); MONOCYTES # (AUTO) 0.6 T/MM3 (0-0.8); MONOCYTES % (AUTO) 9.3 % (0-9.0); NEUTROPHILS #(AUTO)-ABSOLUTE 3.7 T/MM3 (1.8-7.7); NEUTROPHILS % (AUTO) 58.3 % (33-66); RED BLOOD COUNT 4.33 M/MM3 (4.00-5.20); WBC - WHITE BLOOD COUNT 6.4 T/MM3 (4.5-11.0)
[2016-11-29 08:40] LABS: ALBUMIN 4.2 G/DL (3.5-5.0); ALBUMIN/GLOBULIN RATIO 1.6 RATIO (1.1-2.2); ALKALINE PHOSPHATASE 89 U/L (38-126); ALT (SGPT) 29 U/L (9-52); ANION GAP 14 MEQ/L (5-15); AST (SGOT) 22 U/L (14-36); BUN/CREATININE RATIO 21 RATIO (6-26); CALCIUM 9.6 MG/DL (8.4-10.2); CHLORIDE 106 MEQ/L (98-107); CO2 - CARBON DIOXIDE 25 MEQ/L (22-30); CREATININE 0.7 MG/DL (0.7-1.2); GLOMERULAR FILTRATION RATE 80; GLUCOSE 134 MG/DL (65-110); POTASSIUM 4.4 MEQ/L (3.6-5); SODIUM 145 MEQ/L (134-144); TOTAL PROTEIN 6.9 G/DL (6.3-8.2)
--- NOTE | 2016-11-29 08:40 | NUR ---
PORT CHEST PORT CHEST IN ROOM
--- NOTE | 2016-11-29 08:43 | ERPDOC ---
Departure Disposition Decision Date: November 29, 2016 Disposition Decision Time: 09:37 Disposition: 01 DISCHARGED HOME, SELF-CARE Impression Impression Impression: Primary Impression: Paroxysmal atrial fibrillation Severity: Mild Condition: Improved Seen By: Physician only Referrals: SYLVIA MARTIN DO (Family) LOKESH ZHANG MD 2 Days Patient Instructions: Atrial Fibrillation (ED) Problems/Meds/Labs Reviewed?: Yes Medications reviewed and manag: Yes Follow up care ordered?: Yes Mental Status: Alert, Oriented HPI - General Medical General Chief Complaint: Cardiac Complaint Stated Complaint: A-FIB Time Seen by Provider: 08:14 Source: patient, family Exam Limitations: no limitations HPI - General Medical Initial Comments 81-year-old female presents the emergency department with a chief complaint of palpitations. Patient has a history of atrial fibrillation and is anticoagulated on Pradaxa. Patient states that over the past week she has been experiencing intermittent bouts of paroxysmal atrial fibrillation. She saw Dr. Kim her clinical nursing professor 1 week ago when the symptoms began. Patient denies any pain or discomfort. Patient is currently asymptomatic in the emergency department. Patient has no other complaints or associated symptoms. Patient does not note any exacerbating or remitting factors. Occurred At: home Onset: other (Resolved. ) Allergies: Coded Allergies: No Known Drug Allergies (Verified Allergy, Unknown, 02/26/16) Past History Past Medical History Metabolic: hypercholesterolemia Cardiac: A-fib Surgical History Cardiac: cardiac stent, pacemaker, radio ablation Reproductive/: hysterectomy Joint: hip, knee Family History Family History: Negative Family PMH: FOUND: other Vaccines Hx Influenza Vaccination: Yes (FALL 2014) Hx Pneumococcal Vaccination: Yes (FALL 2012) Social History Smoking Status: Never smoker Substance Use Type: does not use Alcohol Intake: none Review of Systems Constitutional Constitutional: DENIES: chills, fever Eyes General: DENIES: erythema, exudate Lids/Accessories: DENIES: erythema, swelling Vision: DENIES: acuity, blurring ENMT Ears: DENIES: drainage, erythema Hearing: DENIES: hearing loss Balance: DENIES: ataxia, falling to one side Sinuses: DENIES: congestion, pain Nose: DENIES: nosebleeds, pain Mouth/Throat: DENIES: painful swallowing, sore throat Teeth: DENIES: pain Jaw: DENIES: pain Cardiovascular Cardiac: DENIES: chest pain, dyspnea on exertion Rhythm/Rate: DENIES: irregular beat, palpitations Vascular: DENIES: pedal edema, unilateral swelling Pulmonary Respiratory: DENIES: cough, dyspnea, pleuritic chest pain, sputum GI Upper Abdomen: DENIES: nausea, pain, vomiting Lower Abdomen: DENIES: diarrhea, pain General: DENIES: dysuria, frequency, urgency Musculoskeletal General: DENIES: joint pain, tenderness Integumentary Skin: DENIES: itching, rash Neurological General: DENIES: headache, numbness, weakness Psychiatric Psychiatric: DENIES: emotional instability, suicidal ideation/attempt Endocrine Endocrine: DENIES: polydipsia, polyphagia Hematologic/Lymphatic Hematologic/Lymphatic: DENIES: frequent nosebleeds, lymphadenopathy Allergic/Immunological Allergic/Immunoligical: DENIES: allergic reactions, hives Physical Exam General General Nourishment: well nourished, well developed, appears stated age, no acute distress, adult General Body Habitus: well groomed Vitals and Pain First Documented Vital Signs Date Time Temp Pulse Resp B/P Pulse Ox O2 Delivery O2 Flow Rate FiO2 11/29/16 07:59 97.8 68 20 152/70 98 Room Air Weight: Kilograms: 82.000 Height (feet): 5 Height (inches): 8.00 Triage Pain Scale: RN VS reviewed by Provider: Yes Normal Exams: Head: Normocephalic w/o trauma Eyes: Pupils are PERRLA w/ EOMI, No scleral icterus, irritation, or foreign bodies noted ENMT: No facial trauma, nasal exudates, pharyngeal erythema, or exudates are noted Dental: No fractured, loose, or missing teeth noted Neck: Full range of motion, without adenopathy, JVD, bruits or thyromegaly Chest/Resp: Clear all wan, with good airflow, and symmetry bilaterally CV: Regular rate and rhythm, without murmur or gallop, Pulses 2+ all extremities, capillary refill, <2 seconds all ext., no pedal edema noted Abdomen: Bowel sounds positive, soft, non-tender, non-distended, no hepatosplenomegaly, masses or bruits noted Lymphatic: No lymphadenopathy, or lymphedema noted Musculoskeletal: No tenderness, or deformity noted, good range of motion, all extremities Integumentary: No rashes, hives, or bruising noted, hair and nails, without abnormality Neurologic: Patient is alert, and oriented, cranial nerves, motor/sensory/ cerebellar, exams w/o gross deficits, to observation Psychiatric: Patient exhibits, appropriate attention, emotion and affect Differential Diagnoses Considering: Medication Effect, Metabolic, Other (paroxysmal atrial fibrillation/ Atrial flutter/ ) Progress Results/Orders Orders Procedure Category Date Status Time Cbc W/Auto LAB 11/29/16 Complete Diff-Reflex Manual Cmp - Comprehensive LAB 11/29/16 Complete Metabolic Troponin I W LAB 11/29/16 Complete Hemolysis Index Chest 1 View RAD 11/29/16 Resulted 08:14 Lab Results Laboratory Tests Test 11/29/16 08:21 White Blood Count 6.4T/MM3 Red Blood Count 4.33M/MM3 Hemoglobin 12.4GM/DL Hematocrit 38.5% Mean Corpuscular Volume 88.9UM3 Mean Corpuscular Hemoglobin 28.6UUG Mean Corpuscular Hemoglobin Concent 32.2GM/DL RDW Standard Deviation 45.4FL Platelet Count 250T/MM3 Mean Platelet Volume 10.3UM3 Immature Granulocyte % (Auto) 0.0% Neutrophils (%) (Auto) 58.3% Lymphocytes (%) (Auto) 29.1% Monocytes (%) (Auto) 9.3% Eosinophils (%) (Auto) 2.7% Basophils (%) (Auto) 0.6% Absolute Immature Granulocyte (auto 0.00T/MM3 Absolute Neutrophils (auto) 3.7T/MM3 Absolute Lymphocytes (auto) 1.9T/MM3 Absolute Monocytes (auto) 0.6T/MM3 Absolute Eosinophils (auto) 0.2T/MM3 Absolute Basophils (auto) 0.0T/MM3 Turbidity < 20 Sodium Level 145MEQ/L Potassium Level 4.4MEQ/L Chloride Level 106MEQ/L Carbon Dioxide Level 25MEQ/L Anion Gap 14MEQ/L Blood Urea Nitrogen 15.0MG/DL Creatinine 0.7MG/DL Glomerular Filtration Rate Calc 80 BUN/Creatinine Ratio 21RATIO Glucose Level 134MG/DL Calculated Osmolality 282MOSM/KG Calcium Level 9.6MG/DL Total Bilirubin 0.60MG/DL Icterus Index < 2 Aspartate Amino Transf (AST/SGOT) 22U/L Alanine Aminotransferase (ALT/SGPT) 29U/L Alkaline Phosphatase 89U/L Troponin I < 0.012ng/ml Total Protein 6.9G/DL Albumin 4.2G/DL Globulin 2.7G/DL Albumin/Globulin Ratio 1.6RATIO Chemistry Specimen Hemolysis < 15 Progress Progress Labs/imaging were discussed with the patient and family and questions are answered. Patient remains asymptomatic in the emergency Department. Patient never experienced chest discomfort with her current symptoms. Patient only experienced a sensation of palpitations. Patient is discussed with her clinical nursing professor Dr. Zhang who is in agreement with the current plan of management to discharge the patient home and have her follow-up with him in the office on Friday. His recommendation is that the patient is not to travel over the weekend. Patient verbalizes agreement and understanding. Patient is discharged home in improved condition. She is to follow up as instructed. She is to return to the emergency Department if her condition worsens or changes in any manner. EKG EKG : Rate: 60-100 Rhythm: sinus [place]: normal QRS: normal Intervals: normal ST/T: non-specific changes Interpreted by: signing physician EKG Comments EKG is unchanged from comparison EKG from 02/26/16. Xray Xray : Xray: CXR Portable Interpretation: Normal, Reviewed Written Report SHANDA MANUEL DO November 29, 2016 08:43
--- NOTE | 2016-11-29 09:18 | NUR ---
PT STATUS PT CONTINUES TO DENY ANY COMPLAINTS, HAS CALL LIGHT IN REACH.
--- NOTE | 2016-11-29 09:27 | DI ---
Indication: ITS.REASON: afib PROCEDURE: CHEST 1 VIEW: Encounter: Initial Comparison: February 09, 2016 Findings: The lungs are stable in appearance without new focal airspace consolidation. There is no pleural effusion or pneumothorax. The heart size, pulmonary vascularity and mediastinal contours are unchanged. Left cardiac pacemaker. Scoliosis and degenerative change in the thoracolumbar spine. IMPRESSION: Stable appearance of the chest without acute cardiopulmonary disease. .
[2016-11-29] MEDS ORDERED: CALC1CAP22 PO (09:39)
[2016-11-29] MEDS ORDERED: SOTA80TA PO (09:40)
[2016-11-29] MEDS ORDERED: DABI150C PO (09:41)
[2016-11-29] MEDS ORDERED: MAGN400T6 PO (09:43)
[2016-11-29 09:53] VITALS: BP 154/74; PULSE 61; RESP 15; TEMP 98; O2SAT 97
== END 2016-11-29 09:53 | disposition home or self-care (01) ==
LOC: ED 07:57
DX: I48.0 Paroxysmal atrial fibrillation (principal); Z79.01 Long term (current) use of anticoagulants
CPT/HCPCS: 36415; 80053; 84484; 85025; 93005